=== PATIENT | male | born 1980 | race Caucasian/White ===

== ENCOUNTER 2017-07-01 17:10 | Emergency (ER) | payer OTHER ==
[2017-07-01] MEDS ORDERED: SODIUM CHLORIDE 0.9% 1,000 ML IV STA ×3 (17:14)
[2017-07-01 17:30] LABS: Basophils % (A) 1 %; CHCM 33.6; Eosinophils # (A) 0.2 k/uL (0-0.7); Eosinophils % (A) 3 %; HCT 48.7 % (39.0-53.0); HDW 2.41; HGB 15.6 gm/dL (13.0-17.5); Luc # (Auto) 0.11; Luc % (Auto) 2; Lymphocytes # (A) 1.8 k/uL (1.0-4.8); Lymphocytes % (A) 31 %; MCH 29.7 pg (25.0-35.0); MCHC 32.1 g/dL (31.0-37.0); MCV 92.7 fL (80.0-100.0); Mean Platelet Volume 6.9; Monocytes # (A) 0.4 k/uL (0-1.0); Monocytes % (A) 6 %; Neutrophils # (A) 3.4 k/uL (1.3-7.7); Neutrophils % (A) 57 %; RBC 5.25 m/uL (4.30-5.90); RDW 14.4 % (11.5-15.5); WBC 5.9 k/uL (3.8-10.6); WBC (Perox) 5.91
--- NOTE | 2017-07-01 17:37 | CT ---
EXAMINATION TYPE: CT brain wo con DATE OF EXAM: 07/01/2017 COMPARISON: 09/16/2016 HISTORY: Seizure like activity today. History of seizures CT DLP: 1306.5 mGycm. Automated Exposure Control for Dose Reduction was Utilized. TECHNIQUE: CT scan of the head is performed without contrast. FINDINGS: There is a wedge-shaped 4 cm area of hypodensity in the left posterior temporal lobe. The re is no mass effect nor midline shift. There is no sign of intracranial hemorrhage. Ventricles of no rmal size. There is a 2 cm area of hypodensity in the left posterior frontal lobe cortex. There is bi lateral old craniotomy defect noted. CONCLUSION: Encephalomalacia in the left posterior frontal lobe and left posterior temporal lobe without change c ompared to old exam. No acute intracranial abnormality. Right side sphenoid sinusitis noted with a 1. 8 cm mucous retention cyst that is unchanged compared to old exam. There is also stable chronic ethmo id sinusitis.
[2017-07-01 17:42] LABS: Partial Thromboplastin Time 24.8 sec (22.0-30.0)
[2017-07-01 17:43] LABS: ALT 33 U/L (21-72); AST 16 U/L (17-59); Acetaminophen <10.0 ug/mL; Alcohol <10 mg/dL; Alkaline Phosphatase 61 U/L (38-126); Anion Gap 10 mmol/L; Blood Urea Nitrogen 11 mg/dL (9-20); Calcium 8.9 mg/dL (8.4-10.2); Carbamazepine (Tegretol) <3.0 ug/mL; Carbon Dioxide 25 mmol/L (22-30); Chloride 108 mmol/L (98-107); Glucose 110 mg/dL (74-99); Lithium <0.2 mmol/L; Magnesium 1.8 mg/dL (1.6-2.3); Non-African American GFR(MDRD) >60 (>60 ml/min/1.73 sqM); Phosphorous 3.4 mg/dL (2.5-4.5); Potassium 3.5 mmol/L (3.5-5.1); Salicylate <1.0 mg/dL; Sodium 143 mmol/L (137-145); Total Bilirubin 0.4 mg/dL (0.2-1.3)
[2017-07-01 17:44] LABS: INR 1.1 (<1.2)
--- NOTE | 2017-07-01 17:47 | ED ---
General Adult HPI - General Chief complaint: Altered Mental Status Stated complaint: Seizure Time Seen by Provider: 07/01/17 17:14 Source: patient, RN notes reviewed, old records reviewed Mode of arrival: EMS - History of Present Illness Initial comments: This is a 37-year-old male to the ER for evaluation. Patient is today for evaluation regarding altered mental status. Patient has history of seizures on Keppra does take his medications as prescribed, seizure are from close head injury as a child. Patient did have seizure earlier today and has been altered ever since. Patient still remains difficult historian secondary to likely postictal state - Related Data Home Medications Medication Instructions Recorded Confirmed levETIRAcetam [Keppra] 1,000 mg PO Q12HR 06/16/16 07/01/17 Albuterol Inhaler [Ventolin Hfa 1 - 2 puff INHALATION RT-QID PRN 07/01/17 Inhaler] Cetirizine HCl [Zyrtec] 10 mg PO DAILY 07/01/17 07/01/17 Fluticasone Nasal [place] [Flonase 1 spray EA NOSTRIL DAILY 07/01/17 07/01/17 Nasal [place]] Allergies Allergy/AdvReac Type Severity Reaction Status Date / Time phenobarbital Allergy Unknown Verified 07/01/17 17:29 Childhood phenytoin sodium Allergy Unknown Verified 07/01/17 17:29 [From Dilantin] Childhood phenytoin sodium extended Allergy Unknown Verified 07/01/17 17:29 [From Dilantin] Childhood Review of Systems ROS Statement: Those systems with pertinent positive or pertinent negative responses have been documented in the HPI. ROS Other: All systems not noted in ROS Statement are negative. Past Medical History Past Medical History: Seizure Disorder Additional Past Medical History / Comment(s): CHI, History of Any Multi-Drug Resistant Organisms: None Reported Additional Past Surgical History / Comment(s): brain surgery, shunts Past Psychological History: No Psychological Hx Reported Smoking Status: Current every day smoker Past Alcohol Use History: Rare Past Drug Use History: None Reported General Exam General appearance: alert, in no apparent distress Head exam: Present: atraumatic, normocephalic, normal inspection Eye exam: Present: normal appearance, PERRL, EOMI. Absent: scleral icterus, conjunctival injection, periorbital swelling ENT exam: Present: normal exam, mucous membranes moist Neck exam: Present: normal inspection. Absent: tenderness, meningismus, lymphadenopathy Respiratory exam: Present: normal lung sounds bilaterally. Absent: respiratory distress, wheezes, rales, rhonchi, stridor Cardiovascular Exam: Present: regular rate, normal rhythm, normal heart sounds. Absent: systolic murmur, diastolic murmur, rubs, gallop, clicks GI/Abdominal exam: Present: soft, normal bowel sounds. Absent: distended, tenderness, guarding, rebound, rigid Extremities exam: Present: normal inspection, full ROM, normal capillary refill. Absent: tenderness, pedal edema, joint swelling, calf tenderness Back exam: Present: normal inspection Neurological exam: Present: alert, oriented X3, CN II-XII intact Psychiatric exam: Present: normal affect, normal mood Skin exam: Present: warm, dry, intact, normal color. Absent: rash Course Vital Signs 07/01/17 07/01/17 07/01/17 17:12 17:58 18:44 Temperature 99.0 F Pulse Rate 18 L 77 75 Respiratory 18 18 14 Rate Blood Pressure 136/76 122/67 110/61 O2 Sat by Pulse 99 96 Oximetry - Reevaluation(s) Reevaluation #1: 07/01/17 18:11 is at bedside he states patient is acting appropriate for his postseizure mental state Reevaluation #2: 07/01/17 18:46 Patient is without further seizure activity EKG Findings - EKG Comments: EKG Findings:: EKG shows normal sinus rhythm rate of 83, LA 44, QRS 70, QTc 472 Medical Decision Making - Medical Decision Making 37 male to ER with recurrent seizure. Postictal state. CT negative, however is normal at this time. Patient without second seizure here in the emergency room. Patient can be discharged home - Lab Data Result diagrams: 07/01/17 17:16 07/01/17 17:16 Lab Results 07/01/17 07/01/17 07/01/17 Range/Units 17:16 17:16 17:16 WBC (3.8-10.6) k/uL RBC (4.30-5.90) m/uL Hgb (13.0-17.5) gm/dL Hct (39.0-53.0) % MCV (80.0-100.0) fL MCH (25.0-35.0) pg MCHC (31.0-37.0) g/dL RDW (11.5-15.5) % Plt Count (150-450) k/uL Neutrophils % % Lymphocytes % % Monocytes % % Eosinophils % % Basophils % % Neutrophils # (1.3-7.7) k/uL Lymphocytes # (1.0-4.8) k/uL Monocytes # (0-1.0) k/uL Eosinophils # (0-0.7) k/uL Basophils # (0-0.2) k/uL PT (9.0-12.0) sec INR (<1.2) APTT (22.0-30.0) sec Sodium 143 (137-145) mmol/L Potassium 3.5 (3.5-5.1) mmol/L Chloride 108 H (98-107) mmol/L Carbon Dioxide 25 (22-30) mmol/L Anion Gap 10 mmol/L BUN 11 (9-20) mg/dL Creatinine 0.90 (0.66-1.25) mg/dL Est GFR (MDRD) Af Amer >60 (>60 ml/min/1.73 sqM) Est GFR (MDRD) Non-Af >60 (>60 ml/min/1.73 sqM) Glucose 110 H (74-99) mg/dL Plasma Lactic Acid Gerald 1.2 (0.7-2.0) mmol/L Calcium 8.9 (8.4-10.2) mg/dL Phosphorus 3.4 (2.5-4.5) mg/dL Magnesium 1.8 (1.6-2.3) mg/dL Total Bilirubin 0.4 (0.2-1.3) mg/dL AST 16 L (17-59) U/L ALT 33 (21-72) U/L Alkaline Phosphatase 61 (38-126) U/L Total Creatine Kinase 33 L (55-170) U/L CK-MB (CK-2) 0.3 (0.0-2.4) ng/mL CK-MB (CK-2) Rel Index 0.9 Troponin I <0.012 (0.000-0.034) ng/mL Total Protein 7.0 (6.3-8.2) g/dL Albumin 3.9 (3.5-5.0) g/dL TSH 6.070 H (0.465-4.680) mIU/L Salicylates <1.0 mg/dL Acetaminophen <10.0 ug/mL Phenytoin <3.0 ug/mL Valproic Acid <10.0 ug/mL Carbamazepine <3.0 ug/mL [place] <0.2 mmol/L Serum Alcohol <10 mg/dL 07/01/17 07/01/17 Range/Units 17:16 17:16 WBC 5.9 (3.8-10.6) k/uL RBC 5.25 (4.30-5.90) m/uL Hgb 15.6 (13.0-17.5) gm/dL Hct 48.7 (39.0-53.0) % MCV 92.7 (80.0-100.0) fL MCH 29.7 (25.0-35.0) pg MCHC 32.1 (31.0-37.0) g/dL RDW 14.4 (11.5-15.5) % Plt Count 238 (150-450) k/uL Neutrophils % 57 % Lymphocytes % 31 % Monocytes % 6 % Eosinophils % 3 % Basophils % 1 % Neutrophils # 3.4 (1.3-7.7) k/uL Lymphocytes # 1.8 (1.0-4.8) k/uL Monocytes # 0.4 (0-1.0) k/uL Eosinophils # 0.2 (0-0.7) k/uL Basophils # 0.0 (0-0.2) k/uL PT 11.0 (9.0-12.0) sec INR 1.1 (<1.2) APTT 24.8 (22.0-30.0) sec Sodium (137-145) mmol/L Potassium (3.5-5.1) mmol/L Chloride (98-107) mmol/L Carbon Dioxide (22-30) mmol/L Anion Gap mmol/L BUN (9-20) mg/dL Creatinine (0.66-1.25) mg/dL Est GFR (MDRD) Af Amer (>60 ml/min/1.73 sqM) Est GFR (MDRD) Non-Af (>60 ml/min/1.73 sqM) Glucose (74-99) mg/dL Plasma Lactic Acid Gerald (0.7-2.0) mmol/L Calcium (8.4-10.2) mg/dL Phosphorus (2.5-4.5) mg/dL Magnesium (1.6-2.3) mg/dL Total Bilirubin (0.2-1.3) mg/dL AST (17-59) U/L ALT (21-72) U/L Alkaline Phosphatase (38-126) U/L Total Creatine Kinase (55-170) U/L CK-MB (CK-2) (0.0-2.4) ng/mL CK-MB (CK-2) Rel Index Troponin I (0.000-0.034) ng/mL Total Protein (6.3-8.2) g/dL Albumin (3.5-5.0) g/dL TSH (0.465-4.680) mIU/L Salicylates mg/dL Acetaminophen ug/mL Phenytoin ug/mL Valproic Acid ug/mL Carbamazepine ug/mL [place] mmol/L Serum Alcohol mg/dL - Radiology Data Radiology results: report reviewed (CT brain is negative for acute disease), image reviewed Disposition Clinical Impression: Altered mental status, Postictal state Disposition: HOME SELF-CARE Condition: Good Instructions: Altered Mental Status (ED) Referrals: Marry Lagos MD [Primary Care Provider] - 1-2 days
[2017-07-01 18:00] LABS: Creatine Kinase 33 U/L (55-170)
[2017-07-01 18:11] LABS: Creatine Kinase MB 0.3 ng/mL (0.0-2.4); Troponin I <0.012 ng/mL (0.000-0.034)
[2017-07-01 18:58] LABS: Appearance,Urine Clear (Clear); Bilirubin,Urine Negative (Negative); Glucose,Urine (UA) Negative (Negative); Ketones,Urine Negative (Negative); Leukocyte Esterase,Urine Negative (Negative); Nitrite,Urine Negative (Negative); Protein,Urine Negative (Negative); Specific Gravity,Urine 1.016 (1.001-1.035); UA Billing (MACRO vs. MICRO) CHEM; Urobilinogen,Urine <2.0 mg/dL (<2.0)
[2017-07-01 19:33] VITALS: BP 133/88; PULSE 70; RESP 18; TEMP 98.8
== END 2017-07-01 19:30 | disposition home or self-care (01) ==
LOC: EC 17:10
DX: R41.82 Altered mental status, unspecified (principal); R56.9 Unspecified convulsions; F17.200 Nicotine dependence, unspecified, uncomplicated; Z79.51 Long term (current) use of inhaled steroids; Z79.899 Other long term (current) drug therapy; Z88.8 Allergy status to other drugs, medicaments and biological substances
CPT/HCPCS: 36415; 70450; 80053; 80156; 80164; 80178; 80185; 80306; 80320; 81003; 82550; 82553; 83520; 83605; 83735; 84100; 84443; 84484; 85025; 85610; 85730; 87086; 93005; 96360; 99285

== ENCOUNTER 2017-12-28 02:23 | Observation (INO) | payer OTHER ==
[2017-12-28 02:33] VITALS: RESP 18
[2017-12-28] MEDS ORDERED: PNEUMONIA PROTOCOL UTILIZED 1 EACH MISC PO PRN (02:40)
[2017-12-28] MEDS ORDERED: ACETAMINOPHEN TAB 325 MG TAB PO PRN (02:47)
[2017-12-28] MEDS ORDERED: IBUPROFEN 600 MG TAB PO PRN (02:47)
--- NOTE | 2017-12-28 02:47 | ED ---
Seizure HPI - General Chief Complaint: Upper Respiratory Infection Stated Complaint: Pneumonia Time Seen by Provider: 12/28/17 02:26 Source: patient Mode of arrival: ambulatory Limitations: no limitations - History of Present Illness Initial Comments: This is a 37-year-old male with a history of epilepsy who presented to outside hospital for breakthrough seizures. He reportedly had 2 seizures prior to getting to the emergency department. One was 3 minutes long and the other was 1 minute long. He did have a seizure in the presence of EMS personnel who gave him 10 mg of IM Versed in route to the outside hospital. On arrival to the ER the patient was hypoxic in the high 80s and very somnolent. He is placed on nonrebreather which improved his oxygen saturations. His mental status did improve throughout the ED stay. He was given 1 g of Keppra in the emergency department at the outside hospital. He had a full workup performed that revealed a left lower lobe pneumonia and possible right-sided infiltrate as well. He was started on Rocephin and got 2 g of that there. The patient also received 3 L of IV fluids while there. He was monitored in his mental status gradually improved area and due to the pneumonia and breakthrough seizures she was transferred to the emergency department here for further management. Of note the patient was febrile at 100.8 at the outside facility. Blood cultures were drawn lactic acid was normal. White blood cell count was 10. The rest of his blood work was unremarkable. The patient currently is very confused and has difficulty answering questions. He is alert and oriented to person only. He is awake however. Has no physical complaints at this time. - Related Data Home Medications Medication Instructions Recorded Confirmed levETIRAcetam [Keppra] 1,000 mg PO Q12HR 06/16/16 07/01/17 Albuterol Inhaler [Ventolin Hfa 1 - 2 puff INHALATION RT-QID PRN 07/01/17 Inhaler] Cetirizine HCl [Zyrtec] 10 mg PO DAILY 07/01/17 07/01/17 Fluticasone Nasal [place] [Flonase 1 spray EA NOSTRIL DAILY 07/01/17 07/01/17 Nasal [place]] Allergies Allergy/AdvReac Type Severity Reaction Status Date / Time phenobarbital Allergy Unknown Verified 07/01/17 17:29 Childhood phenytoin sodium Allergy Unknown Verified 07/01/17 17:29 [From Dilantin] Childhood phenytoin sodium extended Allergy Unknown Verified 07/01/17 17:29 [From Dilantin] Childhood Review of Systems ROS Statement: Those systems with pertinent positive or pertinent negative responses have been documented in the HPI. ROS Other: All systems not noted in ROS Statement are negative. Past Medical History Past Medical History: Seizure Disorder Additional Past Medical History / Comment(s): CHI, History of Any Multi-Drug Resistant Organisms: None Reported Additional Past Surgical History / Comment(s): brain surgery, shunts Past Psychological History: No Psychological Hx Reported Smoking Status: Former smoker Past Alcohol Use History: Rare Past Drug Use History: Marijuana General Exam - General Exam Comments Initial Comments: Constitutional: Awake alert Appears comfortable Head: Normocephalic atraumatic Eyes: no conjunctival injection No scleral icterus EOMI Neck: No JVD Supple Heart: Regular rate rhythm normal S1-S2 no murmurs Lungs: Clear to auscultation bilaterally No wheezing No rales Abdomen: Soft nondistended nontender Extremities: Non edematous DP pulses intact Radial pulses intact Neuro: "Alert and oriented 0, very confused speech. When asked how tall he is he states that he is "3". When I ask him the year he states "28" he has no focal neurologic deficits however Psych: Appropriate mood and affect Limitations: no limitations Course Vital Signs 12/28/17 02:25 Temperature 98.8 F Pulse Rate 99 Respiratory 18 Rate Blood Pressure 130/84 O2 Sat by Pulse 94 L Oximetry Medical Decision Making - Medical Decision Making This is a 37-year-old male who presents to the emergency department from outside hospital for breakthrough seizures, sepsis, and required pneumonia. The patient will be started on Levaquin here and admitted to the hospital. ER he received 1 g of Keppra. I will continue his home dose will be started tomorrow. He needs to be watched closely. Tylenol and Motrin as needed for fever. Dr. Quick accepts the admission. Disposition Clinical Impression: Breakthrough seizure, CAP (community acquired pneumonia), Sepsis Disposition: ADMITTED IP TO THIS HOSP Condition: Stable
[2017-12-28] MEDS: SODIUM CHLORIDE 0.9% 1,000 ML IV SCH ×2 (02:51→12:52)
[2017-12-28 04:41] VITALS: PULSE 79; BMI 30.9
[2017-12-28] MEDS ORDERED: LEVOFLOXACIN 750MG-D5W PMX 750 MG in DEXTROSE/WATER 1 150ML.BAG IVPB SCH (05:00)
[2017-12-28] MEDS ORDERED: levETIRAcetam 500 MG TAB PO SCH (09:00)
[2017-12-28] MEDS ORDERED: LORazepam 2 MG/ML INJ IV PRN (11:52)
[2017-12-28 16:19] VITALS: BP 101/57; TEMP 98.4
--- NOTE | 2017-12-29 13:21 | XR ---
EXAMINATION TYPE: XR chest 2V DATE OF EXAM: 12/28/2017 COMPARISON: NONE HISTORY: Productive cough with concern for pneumonia TECHNIQUE: Frontal and lateral views of the chest are obtained. FINDINGS: Left midlung subsegmental linear platelike atelectasis is noted. There is no focal air spa ce opacity, pleural effusion, or pneumothorax seen. The cardiac silhouette size is upper limits of n ormal. The osseous structures are intact. IMPRESSION: No focal consolidation to suggest pneumonia. Left lower lung subsegmental atelectasis.
--- NOTE | 2017-12-29 15:00 | P.HPIM ---
History of Present Illness H&P Date: 12/28/17 37-year-old male with a history of epilepsy who presented to outside hospital for breakthrough seizures. He reportedly had 2 seizures prior to getting to the emergency department. One was 3 minutes long and the other was 1 minute long. He did have a seizure in the presence of EMS personnel who gave him 10 mg of IM Versed in route to the outside hospital. On arrival to the ER the patient was hypoxic in the high 80s and very somnolent. He is placed on nonrebreather which improved his oxygen saturations. His mental status did improve throughout the ED stay. He was given 1 g of Keppra in the emergency department at the outside hospital. He had a full workup performed that revealed a left lower lobe pneumonia and possible right-sided infiltrate as well. He was started on Rocephin and got 2 g of that there. The patient also received 3 L of IV fluids while there. He was monitored in his mental status gradually improved area and due to the pneumonia and breakthrough seizures she was transferred to the emergency department here for further management. Of note the patient was febrile at 100.8 at the outside facility. Blood cultures were drawn lactic acid was normal. White blood cell count was 10. The rest of his blood work was unremarkable. The patient currently is very confused and has difficulty answering questions. He is alert and oriented to person only. He is awake however. Has no physical complaints at this time. Patient was admitted for breakthrough seizures. Chest x-ray was repeated, repeat chest x- ray is not convincing for pneumonia antibiotics were discontinued. Neurology was consulted. Review of Systems REVIEW OF SYSTEMS: CONSTITUTIONAL: No fever, no malaise, no fatigue. HEENT: No recent visual problems or hearing problems. Denied any sore throat. CARDIOVASCULAR: No chest pain, orthopnea, PND, no palpitations, no syncope. PULMONARY: No shortness of breath, no cough, no hemoptysis. GASTROINTESTINAL: No diarrhea, no nausea, no vomiting, no abdominal pain. Normoactive bowel sounds. NEUROLOGICAL: No headaches, no weakness, no numbness. HEMATOLOGICAL: Denies any bleeding or petechiae. GENITOURINARY: Denies any burning micturition, frequency, or urgency. MUSCULOSKELETAL/RHEUMATOLOGICAL: Denies any joint pain, swelling, or any muscle pain. ENDOCRINE: Denies any polyuria or polydipsia. The rest of the 14-point review of systems is negative. 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 14 years old, shunts Past Anesthesia/Blood Transfusion Reactions: No Reported Reaction Past Psychological History: No Psychological Hx Reported Smoking Status: Former smoker Past Alcohol Use History: Rare Past Drug Use History: Marijuana Medications and Allergies Home Medications Medication Instructions Recorded Confirmed Type levETIRAcetam [Keppra] 1,000 mg PO Q12HR 06/16/16 12/28/17 History Allergies Allergy/AdvReac Type Severity Reaction Status Date / Time phenobarbital Allergy Unknown Verified 12/28/17 07:54 Childhood phenytoin sodium Allergy Unknown Verified 12/28/17 07:54 [From Dilantin] Childhood phenytoin sodium extended Allergy Unknown Verified 12/28/17 07:54 [From Dilantin] Childhood Physical Exam Vitals: Vital Signs Temp Pulse Resp BP Pulse Ox 12/28/17 16:00 79 18 12/28/17 15:00 98.4 F 87 18 101/57 96 Intake and Output 12/28/17 12/29/17 12/29/17 22:59 06:59 14:59 Other: Weight 100.5 kg PHYSICAL EXAMINATION: GENERAL: The patient is alert and oriented x3, not in any acute distress. Well developed, well nourished. HEENT: Pupils are round and equally reacting to light. EOMI. No scleral icterus. No conjunctival pallor. Normocephalic, atraumatic. No pharyngeal erythema. No thyromegaly. CARDIOVASCULAR: S1 and S2 present. No murmurs, rubs, or gallops. PULMONARY: Chest is clear to auscultation, no wheezing or crackles. ABDOMEN: Soft, nontender, nondistended, normoactive bowel sounds. No palpable organomegaly. MUSCULOSKELETAL: No joint swelling or deformity. EXTREMITIES: No cyanosis, clubbing, or pedal edema. NEUROLOGICAL: Gross neurological examination did not reveal any focal deficits. SKIN: No rashes. Thrombosis Risk Factor Assmnt - Choose All That Apply Any of the Below Risk Factors Present?: No Other Risk Factors: No Other congenital or acquired thrombophilia - If yes, enter type in comment: No Thrombosis Risk Factor Assessment Level: Very Low Risk Assessment and Plan Plan: -Breakthrough seizures: Neurology was consulted patient is being continued on Keppra Keppra levels are often although patient already received IV. Patient was started on as needed Ativan for seizures. -Rule out pneumonia repeat chest x-ray is not consistent with pneumonia patient doesn't have any symptoms consistent with pneumonia. Although patient does have atelectasis. -Seizure disorder
--- NOTE | 2017-12-29 15:00 | P.DS ---
Providers Date of admission: 12/28/17 02:40 Attending physician: Marysol Quick Consults: 12/28/17 11:51 Consult Physician Routine Consulting Provider: Kindra Houser Consult Reason/Comments: Breaktrough seizure Do you want consulting provider notified?: Yes Primary care physician: [facility] Course: Patient later left AGAINST MEDICAL ADVICE on 12/28/2017 Patient Condition at Discharge: Stable Plan - Discharge Summary Discharge Rx Participant: No New Discharge Prescriptions: No Action levETIRAcetam [Keppra] 1,000 mg PO Q12HR Discharge Medication List levETIRAcetam [Keppra] 1,000 mg PO Q12HR 06/16/16 [History] Discharge Disposition: Left Against Medical Advice
== END 2017-12-28 18:00 | disposition left against medical advice (07) ==
LOC: EC 02:23 → 5MS5E 02:40 → INTOOBSV 02:40 → UNDODISIN 18:00
PROVIDERS: ADMIT Hospitalist; ATTEND Hospitalist
DX: G40.909 Epilepsy, unspecified, not intractable, without status epilepticus (principal); J98.11 Atelectasis; Z53.21 Procedure and treatment not carried out due to patient leaving prior to being seen by health care provider; R09.02 Hypoxemia; Z79.899 Other long term (current) drug therapy; Z87.891 Personal history of nicotine dependence; Z98.890 Other specified postprocedural states; Z88.8 Allergy status to other drugs, medicaments and biological substances
CPT/HCPCS: 96365; 99284; 80177; 71046; G0378; J1956; 96366

== ENCOUNTER 2017-12-31 22:00 | Emergency (ER) | payer OTHER ==
[2017-12-31 22:08] VITALS: PULSE 62
[2017-12-31] MEDS ORDERED: SODIUM CHLORIDE 0.9% 500 ML IV STA (22:54)
[2017-12-31 23:27] LABS: Basophils % (A) 0 %; Eosinophils # (A) 0.2 k/uL (0-0.7); Eosinophils % (A) 4 %; HCT 41.8 % (39.0-53.0); HGB 15.3 gm/dL (13.0-17.5); Lymphocytes # (A) 1.2 k/uL (1.0-4.8); Lymphocytes % (A) 18 %; MCH 30.2 pg (25.0-35.0); MCHC 36.5 g/dL (31.0-37.0); MCV 82.8 fL (80.0-100.0); Mean Platelet Volume 6.5; Monocytes # (A) 0.4 k/uL (0-1.0); Monocytes % (A) 5 %; Neutrophils # (A) 4.7 k/uL (1.3-7.7); Neutrophils % (A) 71 %; Platelet Count 264 k/uL (150-450); RBC 5.05 m/uL (4.30-5.90); RDW 12.6 % (11.5-15.5); WBC 6.7 k/uL (3.8-10.6)
--- NOTE | 2017-12-31 23:33 | ED ---
Dizziness HPI - General Chief Complaint: Dizziness Stated Complaint: fever Time Seen by Provider: 12/31/17 22:30 Source: patient Mode of arrival: ambulatory Limitations: no limitations - History of Present Illness Initial Comments: This patient is a 37-year-old man presents to be evaluated after he had developed some dizziness tonight. This occurred approximately an hour ago. The patient was at a friend's home. He states that he was seated at the time. He became concerned because he had a similar episode a few days ago, and then after the dizziness developed he had a generalized tonic-clonic seizure. The patient does have history of seizure disorder. He states that he has been compliant with his medications. He also had a little bit of nausea associated with the episode tonight and he felt clammy. He decided to be evaluated here because with the last episode he had a seizure, was seen at an outside hospital , told that he had pneumonia. He was transferred here but then signed out before he was discharged. The patient denies any symptoms of pneumonia, no fever or chills, coughing, dyspnea, chest pain. MD Complaint: dizziness Onset/Timin -: hour(s) Timing: sudden onset Description: off-balance History of Same: Yes History of Trauma: No Severity: mild Improves With: nothing Worsens With: movement Associated Symptoms: other (nausea) - Related Data Home Medications Medication Instructions Recorded Confirmed levETIRAcetam [Keppra] 1,000 mg PO Q12HR 06/16/16 12/31/17 Allergies Allergy/AdvReac Type Severity Reaction Status Date / Time phenobarbital Allergy Unknown Verified 12/31/17 22:32 Childhood phenytoin sodium Allergy Unknown Verified 12/31/17 22:32 [From Dilantin] Childhood phenytoin sodium extended Allergy Unknown Verified 12/31/17 22:32 [From Dilantin] Childhood Review of Systems ROS Statement: Those systems with pertinent positive or pertinent negative responses have been documented in the HPI. ROS Other: All systems not noted in ROS Statement are negative. Constitutional: Denies: fever, chills, weakness Eyes: Denies: vision change Respiratory: Denies: cough, dyspnea, wheezes Cardiovascular: Denies: chest pain, palpitations, orthopnea, syncope Gastrointestinal: Reports: nausea. 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 Absent: scleral icterus, conjunctival injection, nystagmus ENT exam: Present: normal oropharynx Neck exam: Present: normal inspection Respiratory exam: Present: normal lung sounds bilaterally. Absent: respiratory distress, wheezes, rales, rhonchi, stridor Cardiovascular Exam: Present: regular rate, normal rhythm, normal heart sounds. Absent: systolic murmur, diastolic murmur, rubs, gallop GI/Abdominal exam: Present: soft. Absent: distended, tenderness, guarding, rebound, mass Extremities exam: Present: normal inspection, normal capillary refill. Absent: pedal edema, calf tenderness Back exam: Present: normal inspection. Absent: CVA tenderness (R), CVA tenderness (L) Neurological exam: Present: alert, oriented X3, CN II-XII intact, normal gait. Absent: motor sensory deficit Skin exam: Present: warm, dry, intact, normal color. Absent: rash Course Vital Signs 12/31/17 01/01/18 01/01/18 22:05 00:14 00:40 Temperature 97.0 F L 98.4 F Pulse Rate 62 62 Respiratory 18 15 Rate Blood Pressure 139/88 125/74 O2 Sat by Pulse 100 98 Oximetry EKG Findings - EKG Results: EKG: interpreted by SATHISH LOPEZ, sinus rhythm (Rate 63 bpm), normal axis, normal QRS, normal ST/T, no acute changes - ID, Pacemaker, Normal: Normal tracing: normal tracing Medical Decision Making - Lab Data Result diagrams: 12/31/17 23:14 12/31/17 23:14 Lab Results 12/31/17 12/31/17 12/31/17 Range/Units 23:14 23:14 23:14 WBC 6.7 (3.8-10.6) k/uL RBC 5.05 (4.30-5.90) m/uL Hgb 15.3 (13.0-17.5) gm/dL Hct 41.8 (39.0-53.0) % MCV 82.8 (80.0-100.0) fL MCH 30.2 (25.0-35.0) pg MCHC 36.5 (31.0-37.0) g/dL RDW 12.6 (11.5-15.5) % Plt Count 264 (150-450) k/uL Neutrophils % 71 % Lymphocytes % 18 % Monocytes % 5 % Eosinophils % 4 % Basophils % 0 % Neutrophils # 4.7 (1.3-7.7) k/uL Lymphocytes # 1.2 (1.0-4.8) k/uL Monocytes # 0.4 (0-1.0) k/uL Eosinophils # 0.2 (0-0.7) k/uL Basophils # 0.0 (0-0.2) k/uL Sodium 144 (137-145) mmol/L Potassium 4.1 (3.5-5.1) mmol/L Chloride 106 (98-107) mmol/L Carbon Dioxide 26 (22-30) mmol/L Anion Gap 12 mmol/L BUN 13 (9-20) mg/dL Creatinine 0.80 (0.66-1.25) mg/dL Est GFR (CKD-EPI)AfAm >90 (>60 ml/min/1.73 sqM) Est GFR (CKD-EPI)NonAf >90 (>60 ml/min/1.73 sqM) Glucose 88 (74-99) mg/dL Calcium 9.0 (8.4-10.2) mg/dL Total Bilirubin 0.4 (0.2-1.3) mg/dL AST 17 (17-59) U/L ALT 15 L (21-72) U/L Alkaline Phosphatase 48 (38-126) U/L Total Protein 6.9 (6.3-8.2) g/dL Albumin 3.8 (3.5-5.0) g/dL Urine Color Yellow Urine Appearance Clear (Clear) Urine pH 6.5 (5.0-8.0) Ur Specific [place] 1.022 (1.001-1.035) Urine Protein 1+ H (Negative) Urine Glucose (UA) Negative (Negative) Urine Ketones Negative (Negative) Urine Blood Negative (Negative) Urine Nitrite Negative (Negative) Urine Bilirubin Negative (Negative) Urine Urobilinogen <2.0 (<2.0) mg/dL Ur Leukocyte Esterase Negative (Negative) Urine RBC 1 (0-5) /hpf Urine WBC 2 (0-5) /hpf Ur Squamous Epith Cells <1 (0-4) /hpf Urine Bacteria Rare H (None) /hpf Urine Mucus Many H (None) /hpf Disposition Clinical Impression: Dizziness Disposition: HOME SELF-CARE Condition: Good Instructions: Dizziness (ED) Referrals: None,Stated [Primary Care Provider] - 1-2 days
[2017-12-31 23:37] LABS: Appearance,Urine Clear (Clear); Bacteria,Urine Rare /hpf; Bilirubin,Urine Negative (Negative); Blood,Urine Negative (Negative); Color,Urine Yellow; Glucose,Urine (UA) Negative (Negative); Ketones,Urine Negative (Negative); Leukocyte Esterase,Urine Negative (Negative); Mucus,Urine Many /hpf; Nitrite,Urine Negative (Negative); PH, Urine 6.5 (5.0-8.0); Protein,Urine 1+ (Negative); RBC,Urine 1 /hpf (0-5); Specific Gravity,Urine 1.022 (1.001-1.035); Squamous Epithelial Cell,Urine <1 /hpf (0-4); Urobilinogen,Urine <2.0 mg/dL (<2.0); WBC,Urine 2 /hpf (0-5)
[2017-12-31 23:42] LABS: ALT 15 U/L (21-72); AST 17 U/L (17-59); Albumin 3.8 g/dL (3.5-5.0); Alkaline Phosphatase 48 U/L (38-126); Anion Gap 12 mmol/L; Blood Urea Nitrogen 13 mg/dL (9-20); Carbon Dioxide 26 mmol/L (22-30); Chloride 106 mmol/L (98-107); Glucose 88 mg/dL (74-99); Potassium 4.1 mmol/L (3.5-5.1); Sodium 144 mmol/L (137-145); Total Bilirubin 0.4 mg/dL (0.2-1.3); Total Protein 6.9 g/dL (6.3-8.2)
--- NOTE | 2018-01-01 | XR ---
EXAMINATION TYPE: XR chest 2V DATE OF EXAM: 12/31/2017 COMPARISON: 12/28/2017 HISTORY: Dizziness TECHNIQUE: Frontal and lateral views of the chest are obtained. FINDINGS: Heart and mediastinum are normal. Lungs are clear. Diaphragm is normal. Bony thorax is int act. There are chest leads. IMPRESSION: Normal chest. There is clearing of the focal atelectasis in the left midlung compared to old exam.
[2018-01-01 00:15] VITALS: BP 125/74; RESP 15
[2018-01-01 00:41] VITALS: TEMP 98.4
== END 2018-01-01 00:41 | disposition home or self-care (01) ==
LOC: EC 22:00
DX: R42 Dizziness and giddiness (principal); R50.9 Fever, unspecified; R11.0 Nausea; G40.909 Epilepsy, unspecified, not intractable, without status epilepticus; Z87.891 Personal history of nicotine dependence; Z88.8 Allergy status to other drugs, medicaments and biological substances; Z79.899 Other long term (current) drug therapy; Z98.890 Other specified postprocedural states
CPT/HCPCS: 36415; 71046; 80053; 81001; 85025; 93005; 99284

== ENCOUNTER 2019-01-25 10:36 | Emergency (ER) | payer OTHER ==
[2019-01-25] MEDS ORDERED: diphenhydrAMINE 50 MG/ML 1 ML VIAL IVP STA (11:37)
[2019-01-25] MEDS ORDERED: SODIUM CHLORIDE 0.9% 1,000 ML IV STA (11:37)
[2019-01-25] MEDS ORDERED: METOCLOPRAMIDE 5 MG/ML 2 ML VIAL IVP STA (11:37)
--- NOTE | 2019-01-25 12:03 | ED ---
Headache HPI - General Chief Complaint: Headache Stated Complaint: Altered Mental Status Time Seen by Provider: 01/25/19 11:05 Source: RN notes reviewed, old records reviewed Mode of arrival: EMS Limitations: no limitations - History of Present Illness Initial Comments: Patient is a 38-year-old male with history of seizure disorder and brain sounds presents or urgency department today with waking up with a headache. Patient reports the pain is behind his left eye. Patient states that he had concerns for some brief right sided visual loss that resumed his Tylenol this morning. Patient arrived here with his girlfriend and stepmother. Patient states he's also been having some mid back pain. He complains of slight cough. He arrives to emergency department today with complaints of right rib pain. - Related Data Home Medications Medication Instructions Recorded Confirmed levETIRAcetam [Keppra] 1,000 mg PO Q12HR 06/16/16 01/25/19 Allergies Allergy/AdvReac Type Severity Reaction Status Date / Time phenobarbital Allergy Unknown Verified 01/25/19 10:55 Childhood phenytoin sodium Allergy Unknown Verified 01/25/19 10:55 [From Dilantin] Childhood phenytoin sodium extended Allergy Unknown Verified 01/25/19 10:55 [From Dilantin] Childhood Review of Systems ROS Statement: Those systems with pertinent positive or pertinent negative responses have been documented in the HPI. ROS Other: All systems not noted in ROS Statement are negative. 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 Alert and oriented. Limitations: no limitations General appearance: alert, in no apparent distress Head exam: Present: atraumatic, normocephalic, normal inspection Eye exam: Present: normal appearance, PERRL, EOMI. Absent: scleral icterus, conjunctival injection, periorbital swelling ENT exam: Present: normal exam, mucous membranes moist Neck exam: Present: normal inspection. Absent: tenderness, meningismus, lymphadenopathy Respiratory exam: Present: normal lung sounds bilaterally Cardiovascular Exam: Present: regular rate, normal rhythm, normal heart sounds. Absent: systolic murmur, diastolic murmur, rubs, gallop, clicks GI/Abdominal exam: Present: soft, normal bowel sounds. Absent: distended, tenderness, guarding, rebound, rigid Extremities exam: Present: normal inspection, full ROM, normal capillary refill. Absent: tenderness, pedal edema, joint swelling, calf tenderness Back exam: Present: normal inspection Neurological exam: Present: alert, oriented X3, CN II-XII intact Expanded Patient oriented to: Present: person, place, time Speech: Present: fluid speech Cranial nerves: EOM's Intact: Normal Cerebellar function: Finger to Nose: Normal Upper motor neuron: Pronator Drift: Normal Sensory exam: Upper Extremity Light Touch: Normal, Lower Extremity Light Touch: Normal Motor strength exam: RUE: 5, LUE: 5, RLE: 5, LLE: 5 Eye Response: (4) open spontaneously Motor Response: (6) obeys commands Verbal Response: (5) oriented Sohail Total: 15 Psychiatric exam: Present: normal affect, normal mood Skin exam: Present: warm, dry, intact, normal color. Absent: rash Course Vital Signs 01/25/19 01/25/19 10:51 15:43 Temperature 99.2 F 98.8 F Pulse Rate 77 74 Respiratory 16 18 Rate Blood Pressure 138/92 117/76 O2 Sat by Pulse 100 95 Oximetry Medical Decision Making - Medical Decision Making Patient is a 38 year old male with CC of headche, and complains of R eye blurry vision on awakening. Patient has a history of brain shunt and seizure disorder. Patient at this time has no neurological deficits. Patient sttes that he has R rib pain, slight cough. At this time patient given migraine cocktail, CT brain and labs obtained. CT shows no acute process. CXR is normal. Patient labs are unremarkable. Patient was reevaluated and states that he is ready to go home and is hungry. Discharged with referral to see his PCP and neurology. - Lab Data Result diagrams: 01/25/19 12:15 01/25/19 12:15 Lab Results 01/25/19 01/25/19 01/25/19 Range/Units 12:15 12:15 12:15 WBC 8.9 (3.8-10.6) k/uL RBC 5.37 (4.30-5.90) m/uL Hgb 15.8 (13.0-17.5) gm/dL Hct 48.0 (39.0-53.0) % MCV 89.5 (80.0-100.0) fL MCH 29.4 (25.0-35.0) pg MCHC 32.8 (31.0-37.0) g/dL RDW 13.2 (11.5-15.5) % Plt Count 275 (150-450) k/uL Neutrophils % 78 % Lymphocytes % 14 % Monocytes % 5 % Eosinophils % 2 % Basophils % 0 % Neutrophils # 7.0 (1.3-7.7) k/uL Lymphocytes # 1.2 (1.0-4.8) k/uL Monocytes # 0.4 (0-1.0) k/uL Eosinophils # 0.2 (0-0.7) k/uL Basophils # 0.0 (0-0.2) k/uL Sodium 141 (137-145) mmol/L Potassium 4.5 (3.5-5.1) mmol/L Chloride 112 H (98-107) mmol/L Carbon Dioxide 23 (22-30) mmol/L Anion Gap 6 mmol/L BUN 13 (9-20) mg/dL Creatinine 0.67 (0.66-1.25) mg/dL Est GFR (CKD-EPI)AfAm >90 (>60 ml/min/1.73 sqM) Est GFR (CKD-EPI)NonAf >90 (>60 ml/min/1.73 sqM) Glucose 97 (74-99) mg/dL Calcium 9.4 (8.4-10.2) mg/dL Total Bilirubin 0.6 (0.2-1.3) mg/dL AST 16 L (17-59) U/L ALT 32 (21-72) U/L Alkaline Phosphatase 55 (38-126) U/L Total Protein 7.2 (6.3-8.2) g/dL Albumin 4.2 (3.5-5.0) g/dL Influenza Type A RNA Not Detected (Not Detectd) Influenza Type B (PCR) Not Detected (Not Detectd) - Radiology Data Radiology results: report reviewed Periventricular chronic appearing white matter changes present previously. Hypodensity with calcium occasional left watershed region. Old infarct is favored within the differential. This is present previously stable. Disposition Clinical Impression: Migraine, Seizure disorder Disposition: HOME SELF-CARE Condition: Good Instructions (If sedation given, give patient instructions): Acute Headache (ED) Additional Instructions: Follow-up with primary care doctor and neurology. Return to emergency department if any alarming signs or symptoms occur. Is patient prescribed a controlled substance at d/c from ED?: No Referrals: Luis Felipe Tucker MD [Primary Care Provider] - 1-2 days Time of Disposition: 15:08
[2019-01-25 12:33] LABS: Basophils % (A) 0 %; Eosinophils # (A) 0.2 k/uL (0-0.7); Eosinophils % (A) 2 %; HGB 15.8 gm/dL (13.0-17.5); Lymphocytes # (A) 1.2 k/uL (1.0-4.8); Lymphocytes % (A) 14 %; MCH 29.4 pg (25.0-35.0); MCHC 32.8 g/dL (31.0-37.0); MCV 89.5 fL (80.0-100.0); Mean Platelet Volume 6.5; Monocytes # (A) 0.4 k/uL (0-1.0); Monocytes % (A) 5 %; Neutrophils % (A) 78 %; Platelet Count 275 k/uL (150-450); RBC 5.37 m/uL (4.30-5.90); RDW 13.2 % (11.5-15.5); WBC 8.9 k/uL (3.8-10.6)
[2019-01-25 12:44] LABS: ALT 32 U/L (21-72); AST 16 U/L (17-59); Albumin 4.2 g/dL (3.5-5.0); Alkaline Phosphatase 55 U/L (38-126); Anion Gap 6 mmol/L; Blood Urea Nitrogen 13 mg/dL (9-20); Calcium 9.4 mg/dL (8.4-10.2); Carbon Dioxide 23 mmol/L (22-30); Chloride 112 mmol/L (98-107); Glucose 97 mg/dL (74-99); Potassium 4.5 mmol/L (3.5-5.1); Sodium 141 mmol/L (137-145); Total Bilirubin 0.6 mg/dL (0.2-1.3); Total Protein 7.2 g/dL (6.3-8.2)
--- NOTE | 2019-01-25 13:08 | CT ---
EXAMINATION TYPE: CT brain wo con DATE OF EXAM: 01/25/2019 COMPARISON: 07/01/2017 INDICATION: Headache, light sensitivity DLP: 1134.4 mGycm, Automated exposure control for dose reduction was used. CONTRAST: None CT of the brain is performed utilizing 3 mm thick sections through the posterior fossa and 3 mm thick sections through the remaining calvarium. Study is performed within 24 hours of arrival to the hosp [facility]. No abnormal hyperdensity is present to suggest an acute intracranial hemorrhage. No mass lesion is evident. No acute infarcts are evident. There may be an old left watershed infarct. Schizencephaly could be co nsidered. Calcification is within this region. Chronic or congenital changes could be considered. The re is some periventricular white matter hypodensity, suspected to be chronic white matter ischemic ch anges. This is greater than expected for the patient age. Ventricles and sulci are appropriate for the patient age. Paranasal sinuses and mastoid air cells within the [id number] are clear. IMPRESSIONS: 1. Periventricular chronic appearing white matter changes present previously. 2. Hypodensity with calcification in the left watershed region. Old infarct is favored within the dif ferential. This present previously and stable.
--- NOTE | 2019-01-25 13:57 | XR ---
EXAMINATION TYPE: XR chest 2V DATE OF EXAM: 01/25/2019 COMPARISON: 12/31/2017 INDICATION: Pain TECHNIQUE: Frontal and lateral views of the chest are obtained. FINDINGS: The heart size is prominent. The pulmonary vasculature is normal. The lungs are clear. IMPRESSION: 1. Mild cardiomegaly, stable. 2. No acute pulmonary process.
[2019-01-25 15:44] VITALS: BP 117/76; PULSE 74; RESP 18; TEMP 98.8
== END 2019-01-25 15:45 | disposition home or self-care (01) ==
LOC: EC 10:36
DX: G40.909 Epilepsy, unspecified, not intractable, without status epilepticus (principal); G43.909 Migraine, unspecified, not intractable, without status migrainosus; R05 Cough; M54.9 Dorsalgia, unspecified; R07.81 Pleurodynia; Z87.891 Personal history of nicotine dependence; Z79.899 Other long term (current) drug therapy; Z88.8 Allergy status to other drugs, medicaments and biological substances
CPT/HCPCS: 36415; 70450; 71046; 80053; 85025; 87502; 96361; 96374; 96375; 99285

== ENCOUNTER 2019-05-18 18:10 | Emergency (ER) | payer OTHER ==
[2019-05-18] MEDS ORDERED: LORazepam 2 MG/ML INJ IV STA (18:43)
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
[2019-05-18 19:09] LABS: Basophils % (A) 0 %; Eosinophils # (A) 0.1 k/uL (0-0.7); Eosinophils % (A) 1 %; HGB 15.7 gm/dL (13.0-17.5); Lymphocytes # (A) 2.3 k/uL (1.0-4.8); Lymphocytes % (A) 18 %; MCH 28.4 pg (25.0-35.0); MCHC 32.1 g/dL (31.0-37.0); MCV 88.3 fL (80.0-100.0); Mean Platelet Volume 6.5; Monocytes # (A) 0.8 k/uL (0-1.0); Monocytes % (A) 6 %; Neutrophils # (A) 9.3 k/uL (1.3-7.7); Neutrophils % (A) 73 %; Platelet Count 280 k/uL (150-450); RBC 5.54 m/uL (4.30-5.90); RDW 13.4 % (11.5-15.5); WBC 12.7 k/uL (3.8-10.6)
[2019-05-18 19:23] LABS: ALT 17 U/L (21-72); AST 25 U/L (17-59); African American GFR (CKD) >90 (>60 ml/min/1.73 sqM); Albumin 4.7 g/dL (3.5-5.0); Alkaline Phosphatase 79 U/L (38-126); Anion Gap 12 mmol/L; Blood Urea Nitrogen 10 mg/dL (9-20); Calcium 9.3 mg/dL (8.4-10.2); Carbon Dioxide 24 mmol/L (22-30); Chloride 102 mmol/L (98-107); Glucose 118 mg/dL (74-99); Non-African American GFR(CKD) >90 (>60 ml/min/1.73 sqM); Potassium 3.4 mmol/L (3.5-5.1); Sodium 138 mmol/L (137-145); Total Bilirubin 0.9 mg/dL (0.2-1.3); Total Protein 8.2 g/dL (6.3-8.2)
[2019-05-18 20:52] LABS: Amphetamine Screen,Urine Not Detected (NotDetected); Barbiturate Screen,Urine Not Detected (NotDetected); Benzodiazepines Screen,Urine Detected (NotDetected); Cocaine Screen,Urine Not Detected (NotDetected); Methadone Screen, Urine Not Detected (NotDetected); Opiate Screen,Urine Not Detected (NotDetected); Oxycodone Screen, Urine Not Detected (NotDetected); Phencyclidine Screen,Urine Not Detected (NotDetected); Tricyclic Antidepressant,Urine Not Detected (NotDetected); Urn Cannabinoid Scrn Detected (NotDetected)
[2019-05-19 00:05] VITALS: BP 115/69; PULSE 83; RESP 16; TEMP 98.9
== END 2019-05-19 00:35 | disposition home or self-care (01) ==
LOC: EC 18:10
DX: R56.1 Post traumatic seizures (principal); Z87.891 Personal history of nicotine dependence; Z98.890 Other specified postprocedural states; Z79.899 Other long term (current) drug therapy; Z88.8 Allergy status to other drugs, medicaments and biological substances; Y04.0XXA Assault by unarmed brawl or fight, initial encounter; Y92.59 Other trade areas as the place of occurrence of the external cause
CPT/HCPCS: 36415; 93005; 80053; 80177; 85025; 80306; 99284; 96374; J2060

== ENCOUNTER 2019-08-19 19:13 | Emergency (ER) | payer OTHER ==
[2019-08-19] MEDS ORDERED: SODIUM CHLORIDE 0.9% 1,000 ML IV STA (19:35)
--- NOTE | 2019-08-19 20:26 | ED ---
Seizure HPI - General Chief Complaint: Seizure Stated Complaint: Seizure Time Seen by Provider: 08/19/19 19:18 Source: EMS Mode of arrival: EMS Limitations: altered mental status - History of Present Illness Initial Comments: 39-year-old male patient with past medical history significant for seizures presents to the emergency department today for evaluation after having seizure- like activity. Patient came home from hunting and began to hear weird sound and had a bad taste in his mouth. Patient states this is his usual aura prior to having a seizure. Patient states that symptoms started to worsen so he did take a Klonopin. They then called EMS. EMS personnel states the patient did have a focal seizure to the right side of his body. States that he was not verbally responsive during the episode. Patient is in a postictal state upon arrival. He denies any current pain or discomfort. Denies any recent head injury or illness. States he does take Keppra as directed. Denies any alcohol or drug use. Patient denies any recent rash, fever, chills, shortness breath, chest pain, abdominal pain, nausea, vomiting, diarrhea, constipation, back pain, numbness, tingling, dizziness, weakness, hematuria, dysuria, urinary urgency, urinary frequency, headache, visual changes, or any other complaints. - Related Data Home Medications Medication Instructions Recorded Confirmed levETIRAcetam [Keppra] 1,500 mg PO DAILY@1000 05/18/19 08/19/19 Klonopin Odt Wafer 1mg 1 mg PO DAILY PRN 08/19/19 08/19/19 levETIRAcetam [Keppra] 2,000 mg PO HS@2200 08/19/19 08/19/19 Allergies Allergy/AdvReac Type Severity Reaction Status Date / Time phenobarbital Allergy Unknown Verified 08/19/19 19:52 Childhood phenytoin sodium Allergy Unknown Verified 08/19/19 19:52 [From Dilantin] Childhood phenytoin sodium extended Allergy Unknown Verified 08/19/19 19:52 [From Dilantin] Childhood Review of Systems ROS Statement: Those systems with pertinent positive or pertinent negative responses have been documented in the HPI. ROS Other: All systems not noted in ROS Statement are negative. 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 14 years old, shunts Past Anesthesia/Blood Transfusion Reactions: No Reported Reaction Past Psychological History: No Psychological Hx Reported Smoking Status: Former smoker Past Alcohol Use History: Rare Past Drug Use History: Marijuana General Exam Limitations: altered mental status General appearance: alert, in no apparent distress, other (This is a well- developed, well-nourished adult male patient in no acute distress. Vital signs upon presentation are temperature 97.0F, pulse 88, respirations 16, blood pressure 108/75, pulse ox 97% on room air.) Eye exam: Present: normal appearance, PERRL, EOMI. Absent: scleral icterus, conjunctival injection, periorbital swelling ENT exam: Present: normal exam, normal oropharynx, mucous membranes moist Respiratory exam: Present: normal lung sounds bilaterally. Absent: respiratory distress, wheezes, rales, rhonchi, stridor Cardiovascular Exam: Present: regular rate, normal rhythm, normal heart sounds. Absent: systolic murmur, diastolic murmur, rubs, gallop, clicks GI/Abdominal exam: Present: soft, normal bowel sounds. Absent: distended, t enderness, guarding, rebound, rigid Neurological exam: Present: alert, oriented X3, CN II-XII intact, other (Strength in all 4 extremities is 5/5.) Psychiatric exam: Present: normal affect, normal mood Skin exam: Present: warm, dry, intact, normal color. Absent: rash Course Vital Signs 08/19/19 08/19/19 19:20 21:37 Temperature 97.0 F L 98.2 F Pulse Rate 88 87 Respiratory 16 18 Rate Blood Pressure 108/75 138/97 O2 Sat by Pulse 97 100 Oximetry Medical Decision Making - Medical Decision Making 39-year-old male patient presents to the emergency department today for evaluation after having a seizure. Physical examination is unremarkable. He is somewhat postictal and confused however he did also receive 6 mg of Valium in the ambulance. Labs reviewed and are unremarkable. Keppra level was sent. Upon reevaluation is resting comfortably. No further seizure activity. He'll be discharged to follow-up with his neurologist for further evaluation. He is instructed to follow-up with his primary care physician for recheck in 1-2 days. He verbalizes understanding and agrees with this plan. - Lab Data Result diagrams: 08/19/19 19:12 08/19/19 19:12 Lab Results 08/19/19 08/19/19 08/19/19 Range/Units 19:12 19:12 19:12 WBC 10.8 H (3.8-10.6) k/uL RBC 4.89 (4.30-5.90) m/uL Hgb 15.0 (13.0-17.5) gm/dL Hct 44.3 (39.0-53.0) % MCV 90.6 (80.0-100.0) fL MCH 30.7 (25.0-35.0) pg MCHC 33.9 (31.0-37.0) g/dL RDW 12.8 (11.5-15.5) % Plt Count 248 (150-450) k/uL Neutrophils % 87 % Lymphocytes % 8 % Monocytes % 4 % Eosinophils % 1 % Basophils % 0 % Neutrophils # 9.4 H (1.3-7.7) k/uL Lymphocytes # 0.8 L (1.0-4.8) k/uL Monocytes # 0.4 (0-1.0) k/uL Eosinophils # 0.1 (0-0.7) k/uL Basophils # 0.0 (0-0.2) k/uL Sodium 140 (137-145) mmol/L Potassium 4.1 (3.5-5.1) mmol/L Chloride 110 H (98-107) mmol/L Carbon Dioxide 23 (22-30) mmol/L Anion Gap 7 mmol/L BUN 14 (9-20) mg/dL Creatinine 0.70 (0.66-1.25) mg/dL Est GFR (CKD-EPI)AfAm >90 (>60 ml/min/1.73 sqM) Est GFR (CKD-EPI)NonAf >90 (>60 ml/min/1.73 sqM) Glucose 98 (74-99) mg/dL Calcium 9.1 (8.4-10.2) mg/dL Total Bilirubin 0.4 (0.2-1.3) mg/dL AST 19 (17-59) U/L ALT 25 (21-72) U/L Alkaline Phosphatase 53 (38-126) U/L Total Protein 7.1 (6.3-8.2) g/dL Albumin 4.0 (3.5-5.0) g/dL Urine Color Yellow Urine Appearance Clear (Clear) Urine pH 5.5 (5.0-8.0) Ur Specific [place] 1.025 (1.001-1.035) Urine Protein Negative (Negative) Urine Glucose (UA) Negative (Negative) Urine Ketones Negative (Negative) Urine Blood Negative (Negative) Urine Nitrite Negative (Negative) Urine Bilirubin Negative (Negative) Urine Urobilinogen <2.0 (<2.0) mg/dL Ur Leukocyte Esterase Negative (Negative) Serum Alcohol <10 mg/dL - EKG Data -: EKG Interpreted by Ms EKG Comments: EKG obtained at 2027 shows normal sinus rhythm with a sinus arrhythmia. Ventricular rate is 66, NE interval 138, QRS duration 94, QT 360, QTC 377. No evidence of ST elevation or depression. Disposition Clinical Impression: Seizure Disposition: HOME SELF-CARE Condition: Good Instructions (If sedation given, give patient instructions): Recurrent Seizures in Adults (ED) Additional Instructions: Continue all medications as directed. Follow up with her neurologist for recheck as soon as possible. Follow-up through primary care physician for recheck in 1-2 days. Return to the emergency department immediately for any new, worsening, or concerning symptoms. Is patient prescribed a controlled substance at d/c from ED?: No Referrals: Luis Felipe Tucker MD [Primary Care Provider] - 1-2 days Time of Disposition: 21:16
[2019-08-19 20:31] LABS: Appearance,Urine Clear (Clear); Bilirubin,Urine Negative (Negative); Blood,Urine Negative (Negative); Color,Urine Yellow; Glucose,Urine (UA) Negative (Negative); Ketones,Urine Negative (Negative); Leukocyte Esterase,Urine Negative (Negative); Nitrite,Urine Negative (Negative); PH, Urine 5.5 (5.0-8.0); Protein,Urine Negative (Negative); Specific Gravity,Urine 1.025 (1.001-1.035); Urobilinogen,Urine <2.0 mg/dL (<2.0)
[2019-08-19 20:32] LABS: Basophils % (A) 0 %; Eosinophils # (A) 0.1 k/uL (0-0.7); Eosinophils % (A) 1 %; HCT 44.3 % (39.0-53.0); Lymphocytes # (A) 0.8 k/uL (1.0-4.8); Lymphocytes % (A) 8 %; MCH 30.7 pg (25.0-35.0); MCHC 33.9 g/dL (31.0-37.0); MCV 90.6 fL (80.0-100.0); Monocytes # (A) 0.4 k/uL (0-1.0); Monocytes % (A) 4 %; Neutrophils # (A) 9.4 k/uL (1.3-7.7); Neutrophils % (A) 87 %; Platelet Count 248 k/uL (150-450); RBC 4.89 m/uL (4.30-5.90); RDW 12.8 % (11.5-15.5); WBC 10.8 k/uL (3.8-10.6)
[2019-08-19 20:43] LABS: ALT 25 U/L (21-72); AST 19 U/L (17-59); African American GFR (CKD) >90 (>60 ml/min/1.73 sqM); Alcohol <10 mg/dL; Alkaline Phosphatase 53 U/L (38-126); Anion Gap 7 mmol/L; Blood Urea Nitrogen 14 mg/dL (9-20); Calcium 9.1 mg/dL (8.4-10.2); Carbon Dioxide 23 mmol/L (22-30); Chloride 110 mmol/L (98-107); Glucose 98 mg/dL (74-99); Potassium 4.1 mmol/L (3.5-5.1); Sodium 140 mmol/L (137-145); Total Bilirubin 0.4 mg/dL (0.2-1.3); Total Protein 7.1 g/dL (6.3-8.2)
[2019-08-19 21:39] VITALS: BP 138/97; PULSE 87; RESP 18; TEMP 98.2
== END 2019-08-19 21:39 | disposition home or self-care (01) ==
LOC: EC 19:13
DX: G40.909 Epilepsy, unspecified, not intractable, without status epilepticus (principal); Z79.899 Other long term (current) drug therapy; Z88.8 Allergy status to other drugs, medicaments and biological substances; Z87.891 Personal history of nicotine dependence
CPT/HCPCS: 36415; 93005; 80053; 80177; 85025; 81003; 99284; 96360; 96361; G0480; 80320

== ENCOUNTER 2020-07-05 23:37 | Emergency (ER) | payer OTHER ==
[2020-07-05] MEDS ORDERED: SODIUM CHLORIDE 0.9% 1,000 ML IV STA (23:44)
--- NOTE | 2020-07-05 23:44 | ED ---
Seizure HPI - General Stated Complaint: SEIZURE Time Seen by Provider: 07/05/20 23:44 - History of Present Illness Initial Comments: Tahir is a 40-year-old male with a history of seizure disorder who presents the ER today for evaluation of recurrent seizures. Initial history was provided by EMS and the patient was postictal upon arrival. Patient has a history of seizure disorder he is on Keppra as well as a new medication which family reports starts with an elbow to not sure what the medication is. They did not have the medication with them at the location of the seizure as they were visiting a friend's house. Family called 911 after the patient had a single seizure EMS reports the patient has had 5-7 additional petit [place] seizures and was treated with IM Versed. - Related Data Home Medications Medication Instructions Recorded Confirmed levETIRAcetam [Keppra] 1,500 mg PO DAILY@1000 05/18/19 08/19/19 Klonopin Odt Wafer 1mg 1 mg PO DAILY PRN 08/19/19 08/19/19 levETIRAcetam [Keppra] 2,000 mg PO HS@2200 08/19/19 08/19/19 Allergies Allergy/AdvReac Type Severity Reaction Status Date / Time phenobarbital Allergy Unknown Verified 08/19/19 19:52 Childhood phenytoin sodium Allergy Unknown Verified 08/19/19 19:52 [From Dilantin] Childhood phenytoin sodium extended Allergy Unknown Verified 08/19/19 19:52 [From Dilantin] Childhood Review of Systems ROS Statement: Those systems with pertinent positive or pertinent negative responses have been documented in the HPI. ROS Other: All systems not noted in ROS Statement are negative. 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 14 years old, shunts Past Anesthesia/Blood Transfusion Reactions: No Reported Reaction Past Psychological History: No Psychological Hx Reported Past Alcohol Use History: Rare Past Drug Use History: Marijuana General Exam - General Exam Comments Initial Comments: Physical Exam GENERAL: Patient is well-developed and well-nourished. Patient is nontoxic and well- hydrated and is in no distress. HENT: Normocephalic, Atraumatic. EYES: PERRL, EOMI PULMONARY: Unlabored respirations. No audible rales rhonchi or wheezing was noted. CARDIOVASCULAR: There is a regular rate and rhythm without any murmurs gallops or rubs. ABDOMEN: Soft and nontender with normal bowel sounds. SKIN: Skin is clear with no lesions or rashes and otherwise unremarkable. : Deferred NEUROLOGIC: Patient is alert and oriented x to person and year, somewhat confused about how he got the hospital. Moving all extremities spontaneously No seizure activity noted in the ER MUSCULOSKELETAL: Normal extremities with adequate strength and full range of motion. No lower extremity swelling or edema. No calf tenderness. PSYCHIATRIC: Normal psychiatric evaluation. Course Vital Signs 07/05/20 07/06/20 23:39 00:45 Temperature 98.7 F Pulse Rate 101 H 88 Respiratory 18 17 Rate Blood Pressure 100/73 120/82 O2 Sat by Pulse 98 98 Oximetry Medical Decision Making - Medical Decision Making Patient was seen and evaluated history is obtained from EMS and eventually significant other at bedside Patient with a known history of seizures, had breakthrough seizures today Labs are ordered lactic was mildly elevated consistent with seizure Patient was loaded with Keppra Patient had no seizures while in the emergency department and is eager for discharge home with follow-up with neurology outpatient - Lab Data Result diagrams: 07/05/20 23:47 07/05/20 23:47 Lab Results 07/05/20 07/05/20 07/05/20 Range/Units 23:45 23:47 23:47 WBC 8.5 (3.8-10.6) k/uL RBC 5.21 (4.30-5.90) m/uL Hgb 15.6 (13.0-17.5) gm/dL Hct 46.8 (39.0-53.0) % MCV 89.8 (80.0-100.0) fL MCH 29.9 (25.0-35.0) pg MCHC 33.3 (31.0-37.0) g/dL RDW 13.1 (11.5-15.5) % Plt Count 289 (150-450) k/uL Neutrophils % 57 % Lymphocytes % 33 % Monocytes % 5 % Eosinophils % 3 % Basophils % 1 % Neutrophils # 4.8 (1.3-7.7) k/uL Lymphocytes # 2.8 (1.0-4.8) k/uL Monocytes # 0.4 (0-1.0) k/uL Eosinophils # 0.2 (0-0.7) k/uL Basophils # 0.1 (0-0.2) k/uL Sodium 138 (137-145) mmol/L Potassium 3.5 (3.5-5.1) mmol/L Chloride 101 (98-107) mmol/L Carbon Dioxide 28 (22-30) mmol/L Anion Gap 9 mmol/L BUN 9 (9-20) mg/dL Creatinine 0.82 (0.66-1.25) mg/dL Est GFR (CKD-EPI)AfAm >90 (>60 ml/min/1.73 sqM) Est GFR (CKD-EPI)NonAf >90 (>60 ml/min/1.73 sqM) Glucose 133 H (74-99) mg/dL Plasma Lactic Acid Gerald 3.5 H* (0.7-2.0) mmol/L Calcium 9.3 (8.4-10.2) mg/dL Total Bilirubin 0.9 (0.2-1.3) mg/dL AST 22 (17-59) U/L ALT 13 (4-49) U/L Alkaline Phosphatase 60 (38-126) U/L Total Protein 7.6 (6.3-8.2) g/dL Albumin 4.5 (3.5-5.0) g/dL Serum Alcohol <10 mg/dL - EKG Data -: EKG Interpreted by Me EKG shows normal: sinus rhythm EKG Comments: EKG was obtained due to complaint of seizure, EKG obtained at 2342 rate is 101 rhythm is sinus tachycardia, normal axis, normal intervals, MA 152, QRS 90, QTc [address] elevations or depressions no evidence of acute ischemia or infarction. Disposition Clinical Impression: Breakthrough seizure Disposition: HOME SELF-CARE Condition: Stable Instructions (If sedation given, give patient instructions): Recurrent Seizures in Adults (ED) Is patient prescribed a controlled substance at d/c from ED?: No Referrals: None,Stated [Primary Care Provider] - 1-2 days
[2020-07-05] MEDS ORDERED: levETIRAcetam IV 1,000 MG in SALINE 1 100ML.BAG IVPB STA (23:52)
[2020-07-05 23:56] LABS: Basophils # (A) 0.1 k/uL (0-0.2); Basophils % (A) 1 %; Eosinophils # (A) 0.2 k/uL (0-0.7); Eosinophils % (A) 3 %; HCT 46.8 % (39.0-53.0); HGB 15.6 gm/dL (13.0-17.5); Lymphocytes # (A) 2.8 k/uL (1.0-4.8); Lymphocytes % (A) 33 %; MCH 29.9 pg (25.0-35.0); MCHC 33.3 g/dL (31.0-37.0); MCV 89.8 fL (80.0-100.0); Mean Platelet Volume 7.1; Monocytes # (A) 0.4 k/uL (0-1.0); Monocytes % (A) 5 %; Neutrophils # (A) 4.8 k/uL (1.3-7.7); Neutrophils % (A) 57 %; Platelet Count 289 k/uL (150-450); RBC 5.21 m/uL (4.30-5.90); RDW 13.1 % (11.5-15.5); WBC 8.5 k/uL (3.8-10.6)
[2020-07-06 00:07] LABS: ALT 13 U/L (4-49); AST 22 U/L (17-59); African American GFR (CKD) >90 (>60 ml/min/1.73 sqM); Albumin 4.5 g/dL (3.5-5.0); Alcohol <10 mg/dL; Alkaline Phosphatase 60 U/L (38-126); Anion Gap 9 mmol/L; Blood Urea Nitrogen 9 mg/dL (9-20); Calcium 9.3 mg/dL (8.4-10.2); Carbon Dioxide 28 mmol/L (22-30); Chloride 101 mmol/L (98-107); Glucose 133 mg/dL (74-99); Non-African American GFR(CKD) >90 (>60 ml/min/1.73 sqM); Sodium 138 mmol/L (137-145); Total Bilirubin 0.9 mg/dL (0.2-1.3); Total Protein 7.6 g/dL (6.3-8.2)
[2020-07-06 00:12] LABS: Potassium 3.5 mmol/L (3.5-5.1)
[2020-07-06 02:01] VITALS: PULSE 88
[2020-07-06 02:18] VITALS: BP 102/61; RESP 18; TEMP 97.6
== END 2020-07-06 02:12 | disposition home or self-care (01) ==
LOC: EC 23:37
DX: G40.909 Epilepsy, unspecified, not intractable, without status epilepticus (principal); Z88.8 Allergy status to other drugs, medicaments and biological substances; Z98.890 Other specified postprocedural states
CPT/HCPCS: 36415 ×2; 93005; 80053; 83605; 85025; 99284; 96365; 96361 ×2; G0480; J1953; 80320

== ENCOUNTER → 2020-08-17 | Outpatient (CLI) | payer OTHER ==
--- NOTE | 2020-08-18 08:19 | USB ---
Reason for exam: clinical finding. Physical Findings: Nurse Summary: Patient complains of left breast lump x 2 years, 2cm lump 12 o'clock left breast, movable, circumscribed (nurse mj). US Breast Limited LT Technologist: Kierra Humphries Left complete breast ultrasound includes all four quadrants, the retroareolar region and axilla. Finding demonstrates 2.2 x 2.4 x 1.4cm oval, hypoechoic lesion at 12 o'clock. These results were verbally communicated with the patient and result sheet given to the patient on 08/17/20. ASSESSMENT: Suspicious, BI-RAD 4 RECOMMENDATION: Ultrasound core biopsy of the left breast. Patient has an appointment with Dr. Tucker on 08/18/20 and will discuss results. PRELIMINARY REPORT CALLED AND FAXED TO DR. TUCKER ON 08/18/20.
== END | disposition home or self-care (01) ==
LOC: RADUSWWP 14:29
PROVIDERS: ATTEND Pediatrics
DX: D17.79 Benign lipomatous neoplasm of other sites (principal)

== ENCOUNTER 2020-09-20 14:40 | Emergency (ER) | payer OTHER ==
[2020-09-20] MEDS ORDERED: LORazepam 2 MG/ML INJ IV STA ×2 (14:51→14:59)
[2020-09-20 14:52] LABS: Glucose,Whole Blood 115 mg/dL (75-99)
[2020-09-20 14:54] VITALS: TEMP 98.5
[2020-09-20 15:22] LABS: Basophils # (A) 0.1 k/uL (0-0.2); Basophils % (A) 2 %; Eosinophils # (A) 0.1 k/uL (0-0.7); Eosinophils % (A) 1 %; HCT 49.4 % (39.0-53.0); HGB 16.4 gm/dL (13.0-17.5); Lymphocytes # (A) 1.9 k/uL (1.0-4.8); Lymphocytes % (A) 21 %; MCH 31.1 pg (25.0-35.0); MCHC 33.1 g/dL (31.0-37.0); MCV 93.9 fL (80.0-100.0); Mean Platelet Volume 7.1; Monocytes # (A) 0.4 k/uL (0-1.0); Monocytes % (A) 5 %; Neutrophils # (A) 6.1 k/uL (1.3-7.7); Neutrophils % (A) 69 %; Platelet Count 305 k/uL (150-450); RBC 5.26 m/uL (4.30-5.90); WBC 8.8 k/uL (3.8-10.6)
[2020-09-20 15:37] LABS: ALT 17 U/L (4-49); AST 23 U/L (17-59); African American GFR (CKD) >90 (>60 ml/min/1.73 sqM); Albumin 4.6 g/dL (3.5-5.0); Alkaline Phosphatase 69 U/L (38-126); Anion Gap 20 mmol/L; Blood Urea Nitrogen 11 mg/dL (9-20); Carbon Dioxide 17 mmol/L (22-30); Chloride 109 mmol/L (98-107); Glucose 129 mg/dL (74-99); Non-African American GFR(CKD) >90 (>60 ml/min/1.73 sqM); Potassium 4.5 mmol/L (3.5-5.1); Sodium 146 mmol/L (137-145); Total Bilirubin 0.4 mg/dL (0.2-1.3); Total Protein 7.9 g/dL (6.3-8.2)
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
[2020-09-20] MEDS ORDERED: SODIUM CHLORIDE 0.9% 1,000 ML IV ONE (15:58)
[2020-09-20] MEDS ORDERED: SODIUM CHLORIDE 0.9% 500 ML 500 ML IV ONE (15:58)
--- NOTE | 2020-09-20 15:59 | CT ---
EXAMINATION TYPE: CT brain wo con DATE OF EXAM: 09/20/2020 COMPARISON: 01/25/2019. HISTORY: seizure activity CT DLP: 1202.4 mGycm. Automated Exposure Control for Dose Reduction was Utilized. TECHNIQUE: CT scan of the head is performed without contrast. FINDINGS: There is no acute intracranial hemorrhage, mass effect, or midline shift identified. Ther e is stable moderate encephalomalacia in the left parietal lobe with mild internal calcifications. St able associated overlying craniotomy. Otherwise the ventricles and sulci are within normal limits in size. The globes are intact and the v isualized sinuses are clear. IMPRESSION: No acute intracranial hemorrhage, mass effect, or midline shift is seen. Stable left parietal encephalomalacia.
[2020-09-20] MEDS ORDERED: SODIUM CHLORIDE 0.9% 1,000 ML IV SCH (16:00)
[2020-09-20 16:08] VITALS: BP 94/59; PULSE 65; RESP 18
== END 2020-09-20 17:16 | disposition home or self-care (01) ==
LOC: EC 14:40
DX: G40.909 Epilepsy, unspecified, not intractable, without status epilepticus (principal); F17.200 Nicotine dependence, unspecified, uncomplicated; Z79.899 Other long term (current) drug therapy; Z87.820 Personal history of traumatic brain injury
CPT/HCPCS: 36415; 93005; 80053; 80177; 85025; 70450; 99284; 96374; 96361 ×2; J2060

== ENCOUNTER 2021-01-16 19:54 | Emergency (ER) | payer OTHER ==
[2021-01-16] MEDS: SODIUM CHLORIDE 0.9% 1,000 ML IV STA (20:41)
--- NOTE | 2021-01-16 20:43 | ED ---
General Adult HPI - General Chief complaint: Seizure Stated complaint: Seizure Time Seen by Provider: 01/16/21 19:58 Source: EMS Mode of arrival: EMS Limitations: altered mental status - History of Present Illness Initial comments: 40-year-old male patient has medical history significant for seizures and hematocrit brain injury as a child presents to the emergency department today for evaluation of seizure. is present and states that he started having aura symptoms which includes hearing a sound. States then had some tremors to the right arm. He developed more pronounced tremors to the right arm and became confused so she administered his klonopin. She called ambulance just in case he progressed to more generalized seizure, by the time EMS arrived he was still confused so he was transported here. He denies any current pain, headache, dizz iness, or weakness. States he feels fine. Does remain somewhat disoriented, which states is not unusual. Patient denies any recent rash, fever, chills, cough, shortness of breath, chest pain, abdominal pain, nausea, vomiting, diarrhea, constipation, back pain, numbness, tingling, hematuria, dysuria, urinary urgency, urinary frequency, visual changes, or any other complaints. - Related Data Home Medications Medication Instructions Recorded Confirmed Klonopin Odt Wafer 1mg 1 mg PO DAILY PRN 08/19/19 01/16/21 Loratadine [Claritin] 10 mg PO DAILY 01/16/21 01/16/21 OXcarbazepine [Trileptal] 300 mg PO BID 01/16/21 01/16/21 levETIRAcetam [Keppra] 2,000 mg PO DAILY 01/16/21 01/16/21 levETIRAcetam [Keppra] 2,500 mg PO HS 01/16/21 01/16/21 Allergies Allergy/AdvReac Type Severity Reaction Status Date / Time phenobarbital Allergy Unknown Verified 01/16/21 22:02 Childhood phenytoin sodium Allergy Unknown Verified 01/16/21 22:02 [From Dilantin] Childhood phenytoin sodium extended Allergy Unknown Verified 01/16/21 22:02 [From Dilantin] Childhood Review of Systems ROS Statement: Those systems with pertinent positive or pertinent negative responses have been documented in the HPI. ROS Other: All systems not noted in ROS Statement are negative. Past Medical History Past Medical History: Seizure Disorder Additional Past Medical History / Comment(s): CHI, TBI History of Any Multi-Drug Resistant Organisms: None Reported Additional Past Surgical History / Comment(s): brain surgery 30% of left hemishphere removed when patient was 14 years old, shunts Past Anesthesia/Blood Transfusion Reactions: No Reported Reaction Past Psychological History: No Psychological Hx Reported Smoking Status: Current every day smoker Past Alcohol Use History: Rare Past Drug Use History: Marijuana General Exam Limitations: altered mental status General appearance: alert, in no apparent distress, other (Physical well- developed, well-nourished adult male patient in no acute distress. Vital signs upon presentation are temperature 97.8F, pulse 90, respirations 20, blood pressure 120/77, pulse ox 100% on room air.) Eye exam: Present: normal appearance, PERRL, EOMI. Absent: scleral icterus, conjunctival injection, nystagmus, periorbital swelling ENT exam: Present: normal exam, normal oropharynx, mucous membranes moist Neck exam: Present: normal inspection. Absent: tenderness, meningismus, lymphadenopathy Respiratory exam: Present: normal lung sounds bilaterally. Absent: respiratory distress, wheezes, rales, rhonchi, stridor Cardiovascular Exam: Present: regular rate, normal rhythm, normal heart sounds. Absent: systolic murmur, diastolic murmur, rubs, gallop, clicks GI/Abdominal exam: Present: soft, normal bowel sounds. Absent: distended, tenderness, guarding, rebound, rigid Neurological exam: Present: alert, CN II-XII intact. Absent: oriented X3 (Oriented 1) Expanded Speech: Present: fluid speech Cranial nerves: EOM's Intact: Normal, Nystagmus: Normal Motor strength exam: RUE: 5, LUE: 5, RLE: 5, LLE: 5 Psychiatric exam: Present: normal affect, normal mood Skin exam: Present: warm, dry, intact, normal color. Absent: rash Course Vital Signs 01/16/21 01/16/21 20:00 22:23 Temperature 97.8 F 98.0 F Pulse Rate 90 86 Respiratory 20 18 Rate Blood Pressure 124/77 130/70 O2 Sat by Pulse 100 98 Oximetry EKG Findings - EKG Comments: EKG Findings:: EKG obtained at 2052 shows normal sinus rhythm with a sinus arrhythmia, ventricular rate is 69, VT interval 134, QRS duration 106, QT 370, QTC 396. No evidence of ST elevation or depression. Medical Decision Making - Medical Decision Making 40-year-old male patient past medical history significant for TBI as a child, epilepsy currently taking Keppra and a new seizure medication, comes to the emergency department after having a focal seizure to the right arm. Physical examination is unremarkable. Is neurologically intact is somewhat disoriented. Labs reviewed and are unremarkable. Upon reevaluation he is back to baseline responding appropriately. Does feel comfortable being discharged home. Instructed to follow-up with his primary care physician and neurologist as soon as possible. Return parameters were discussed in detail. He verbalizes understanding and agrees with this plan. Case discussed with my attending Dr. Bryan. - Lab Data Result diagrams: 01/16/21 20:36 01/16/21 20:36 Lab Results 01/16/21 01/16/21 Range/Units 20:36 20:36 WBC 7.8 (3.8-10.6) k/uL RBC 4.47 (4.30-5.90) m/uL Hgb 14.0 (13.0-17.5) gm/dL Hct 39.9 (39.0-53.0) % MCV 89.2 (80.0-100.0) fL MCH 31.3 (25.0-35.0) pg MCHC 35.1 (31.0-37.0) g/dL RDW 13.0 (11.5-15.5) % Plt Count 224 (150-450) k/uL MPV 6.9 Neutrophils % 83 % Lymphocytes % 11 % Monocytes % 5 % Eosinophils % 1 % Basophils % 0 % Neutrophils # 6.5 (1.3-7.7) k/uL Lymphocytes # 0.8 L (1.0-4.8) k/uL Monocytes # 0.4 (0-1.0) k/uL Eosinophils # 0.1 (0-0.7) k/uL Basophils # 0.0 (0-0.2) k/uL Sodium 134 L (137-145) mmol/L Potassium 3.8 (3.5-5.1) mmol/L Chloride 101 (98-107) mmol/L Carbon Dioxide 25 (22-30) mmol/L Anion Gap 8 mmol/L BUN 11 (9-20) mg/dL Creatinine 0.64 L (0.66-1.25) mg/dL Est GFR (CKD-EPI)AfAm >90 (>60 ml/min/1.73 sqM) Est GFR (CKD-EPI)NonAf >90 (>60 ml/min/1.73 sqM) Glucose 126 H (74-99) mg/dL Calcium 8.8 (8.4-10.2) mg/dL Total Bilirubin 0.5 (0.2-1.3) mg/dL AST 19 (17-59) U/L ALT 11 (4-49) U/L Alkaline Phosphatase 54 (38-126) U/L Total Protein 6.5 (6.3-8.2) g/dL Albumin 3.8 (3.5-5.0) g/dL Serum Alcohol <10 mg/dL Disposition Clinical Impression: Seizure Disposition: HOME SELF-CARE Condition: Good Instructions (If sedation given, give patient instructions): Recurrent Seizures in Adults (ED) Additional Instructions: Follow-up with your primary care physician neurologist for further evaluation as soon as possible. Return to the emergency department for any new, worsening, or concerning symptoms. Is patient prescribed a controlled substance at d/c from ED?: No Referrals: Luis Felipe Tucker MD [Primary Care Provider] - 1-2 days Time of Disposition: 22:07
[2021-01-16 20:45] LABS: Basophils % (A) 0 %; Eosinophils # (A) 0.1 k/uL (0-0.7); Eosinophils % (A) 1 %; HCT 39.9 % (39.0-53.0); Lymphocytes # (A) 0.8 k/uL (1.0-4.8); Lymphocytes % (A) 11 %; MCH 31.3 pg (25.0-35.0); MCHC 35.1 g/dL (31.0-37.0); MCV 89.2 fL (80.0-100.0); Mean Platelet Volume 6.9; Monocytes # (A) 0.4 k/uL (0-1.0); Monocytes % (A) 5 %; Neutrophils # (A) 6.5 k/uL (1.3-7.7); Neutrophils % (A) 83 %; Platelet Count 224 k/uL (150-450); RBC 4.47 m/uL (4.30-5.90); WBC 7.8 k/uL (3.8-10.6)
[2021-01-16 20:57] LABS: ALT 11 U/L (4-49); AST 19 U/L (17-59); African American GFR (CKD) >90 (>60 ml/min/1.73 sqM); Albumin 3.8 g/dL (3.5-5.0); Alcohol <10 mg/dL; Alkaline Phosphatase 54 U/L (38-126); Anion Gap 8 mmol/L; Blood Urea Nitrogen 11 mg/dL (9-20); Calcium 8.8 mg/dL (8.4-10.2); Carbon Dioxide 25 mmol/L (22-30); Chloride 101 mmol/L (98-107); Glucose 126 mg/dL (74-99); Non-African American GFR(CKD) >90 (>60 ml/min/1.73 sqM); Potassium 3.8 mmol/L (3.5-5.1); Sodium 134 mmol/L (137-145); Total Bilirubin 0.5 mg/dL (0.2-1.3); Total Protein 6.5 g/dL (6.3-8.2)
[2021-01-16 22:25] VITALS: BP 130/70; PULSE 86; RESP 18; TEMP 98
== END 2021-01-16 22:23 | disposition home or self-care (01) ==
LOC: EC 19:54
DX: G40.909 Epilepsy, unspecified, not intractable, without status epilepticus (principal); F17.200 Nicotine dependence, unspecified, uncomplicated; F12.90 Cannabis use, unspecified, uncomplicated
CPT/HCPCS: 93005; 80053; 80177; 85025; 99284; 96360; G0480; 80320

== ENCOUNTER 2021-05-20 13:53 | Emergency (ER) | payer OTHER ==
[2021-05-20 14:11] VITALS: RESP 16; TEMP 99.3
[2021-05-20] MEDS ORDERED: SODIUM CHLORIDE 0.9% 1,000 ML IV STA (14:30)
[2021-05-20 14:51] LABS: Basophils % (A) 1 %; Eosinophils # (A) 0.1 k/uL (0-0.7); Eosinophils % (A) 2 %; HCT 48.7 % (39.0-53.0); HGB 16.3 gm/dL (13.0-17.5); Lymphocytes # (A) 0.7 k/uL (1.0-4.8); Lymphocytes % (A) 12 %; MCH 31.8 pg (25.0-35.0); MCHC 33.3 g/dL (31.0-37.0); MCV 95.3 fL (80.0-100.0); Mean Platelet Volume 7.7; Monocytes # (A) 0.3 k/uL (0-1.0); Monocytes % (A) 5 %; Neutrophils # (A) 4.6 k/uL (1.3-7.7); Neutrophils % (A) 80 %; Platelet Count 257 k/uL (150-450); RBC 5.12 m/uL (4.30-5.90); RDW 13.3 % (11.5-15.5); WBC 5.7 k/uL (3.8-10.6)
[2021-05-20 15:02] LABS: ALT 14 U/L (4-49); AST 22 U/L (17-59); African American GFR (CKD) >90 (>60 ml/min/1.73 sqM); Albumin 4.2 g/dL (3.5-5.0); Alcohol <10 mg/dL; Alkaline Phosphatase 52 U/L (38-126); Anion Gap 6 mmol/L; Blood Urea Nitrogen 14 mg/dL (9-20); Calcium 9.3 mg/dL (8.4-10.2); Carbon Dioxide 26 mmol/L (22-30); Chloride 108 mmol/L (98-107); Glucose 117 mg/dL (74-99); Non-African American GFR(CKD) >90 (>60 ml/min/1.73 sqM); Potassium 4.5 mmol/L (3.5-5.1); Sodium 140 mmol/L (137-145); Total Bilirubin 0.2 mg/dL (0.2-1.3); Total Protein 7.1 g/dL (6.3-8.2)
[2021-05-20 15:23] LABS: Appearance,Urine Clear (Clear); Bilirubin,Urine Negative (Negative); Blood,Urine Negative (Negative); Color,Urine Yellow; Glucose,Urine (UA) Negative (Negative); Ketones,Urine Negative (Negative); Leukocyte Esterase,Urine Negative (Negative); Nitrite,Urine Negative (Negative); PH, Urine 7.5 (5.0-8.0); Protein,Urine Trace (Negative); Specific Gravity,Urine 1.023 (1.001-1.035); Urobilinogen,Urine <2.0 mg/dL (<2.0)
[2021-05-20 15:28] VITALS: BP 124/87; PULSE 60
[2021-05-20 15:34] LABS: Amphetamine Screen,Urine Not Detected (NotDetected); Barbiturate Screen,Urine Not Detected (NotDetected); Benzodiazepines Screen,Urine Not Detected (NotDetected); Cocaine Screen,Urine Not Detected (NotDetected); Methadone Screen, Urine Not Detected (NotDetected); Opiate Screen,Urine Not Detected (NotDetected); Oxycodone Screen, Urine Not Detected (NotDetected); Phencyclidine Screen,Urine Not Detected (NotDetected); Tricyclic Antidepressant,Urine Not Detected (NotDetected); Urn Cannabinoid Scrn Detected (NotDetected)
--- NOTE | 2021-05-20 15:35 | ED ---
General Adult HPI - General Chief complaint: Seizure Stated complaint: Seizure Time Seen by Provider: 05/20/21 14:22 Source: EMS Mode of arrival: ambulatory Limitations: no limitations - History of Present Illness Initial comments: 41-year-old male with a past medical history of CVI, seizure disorder presents to the emergency room for a chief complaint of seizure. Family member at bedside states that patient started to have a seizure at home. States that he usually gets them every few months. States that whenever patient has a seizure it scares her and she always called 911. If patient is not alert to refuse the ambulance they come to the hospital. Patient was given versed on transportation by EMS. Patient denying any complaints at this time but is sleepy.patient did take his seizure medication today. Patient has no other complaints at this time including shortness of breath, chest pain, abdominal pain, nausea or vomiting, headache, or visual changes. - Related Data Home Medications Medication Instructions Recorded Confirmed Klonopin Odt Wafer 1mg 1 mg PO DAILY PRN 08/19/19 01/16/21 Loratadine [Claritin] 10 mg PO DAILY 01/16/21 01/16/21 OXcarbazepine [Trileptal] 300 mg PO BID 01/16/21 01/16/21 levETIRAcetam [Keppra] 2,000 mg PO DAILY 01/16/21 01/16/21 levETIRAcetam [Keppra] 2,500 mg PO HS 01/16/21 01/16/21 Allergies Allergy/AdvReac Type Severity Reaction Status Date / Time phenobarbital Allergy Unknown Verified 05/20/21 14:09 Childhood phenytoin sodium Allergy Unknown Verified 05/20/21 14:09 [From Dilantin] Childhood phenytoin sodium extended Allergy Unknown Verified 05/20/21 14:09 [From Dilantin] Childhood Review of Systems ROS Statement: Those systems with pertinent positive or pertinent negative responses have been documented in the HPI. ROS Other: All systems not noted in ROS Statement are negative. Past Medical History Past Medical History: Seizure Disorder Additional Past Medical History / Comment(s): CHI, TBI History of Any Multi-Drug Resistant Organisms: None Reported Additional Past Surgical History / Comment(s): brain surgery 30% of left hemishphere removed when patient was 14 years old, shunts Past Anesthesia/Blood Transfusion Reactions: No Reported Reaction Past Psychological History: No Psychological Hx Reported Smoking Status: Current every day smoker Past Alcohol Use History: Rare Past Drug Use History: Marijuana General Exam Limitations: no limitations General appearance: alert, in no apparent distress Head exam: Present: atraumatic, normocephalic, normal inspection Eye exam: Present: normal appearance, PERRL, EOMI. Absent: scleral icterus, conjunctival injection, periorbital swelling ENT exam: Present: normal exam Neck exam: Present: normal inspection, full ROM. Absent: tenderness, meningismus, lymphadenopathy Respiratory exam: Present: normal lung sounds bilaterally. Absent: respiratory distress, wheezes, rales, rhonchi, stridor Cardiovascular Exam: Present: regular rate, normal rhythm, normal heart sounds. Absent: systolic murmur, diastolic murmur, rubs, gallop, clicks GI/Abdominal exam: Present: soft, normal bowel sounds. Absent: distended, tenderness, guarding, rebound, rigid Neurological exam: Present: alert Course Vital Signs 05/20/21 05/20/21 14:09 15:27 Temperature 99.3 F Pulse Rate 96 60 Respiratory 16 16 Rate Blood Pressure 128/78 124/87 O2 Sat by Pulse 99 99 Oximetry Medical Decision Making - Medical Decision Making Vitals are stable. Patient is sleepy on presentation. Her evaluation was initiated. CBC CMP unremarkable. Urinalysis unremarkable. Toxicology screen negative except for marijuana. Serum alcohol is less than 10. I did recommend staying longer for more monitoring however patient is now alert. He is sitting in a chair with a cigar in his mouth saying he is going to leave if we did not discharge him. Patient will be discharged home to follow up with primary care. If he has any worsening symptoms he will return here. - Lab Data Result diagrams: 05/20/21 14:32 05/20/21 14:32 Lab Results 05/20/21 05/20/21 05/20/21 Range/Units 14:32 14:32 15:15 WBC 5.7 (3.8-10.6) k/uL RBC 5.12 (4.30-5.90) m/uL Hgb 16.3 (13.0-17.5) gm/dL Hct 48.7 (39.0-53.0) % MCV 95.3 (80.0-100.0) fL MCH 31.8 (25.0-35.0) pg MCHC 33.3 (31.0-37.0) g/dL RDW 13.3 (11.5-15.5) % Plt Count 257 (150-450) k/uL MPV 7.7 Neutrophils % 80 % Lymphocytes % 12 % Monocytes % 5 % Eosinophils % 2 % Basophils % 1 % Neutrophils # 4.6 (1.3-7.7) k/uL Lymphocytes # 0.7 L (1.0-4.8) k/uL Monocytes # 0.3 (0-1.0) k/uL Eosinophils # 0.1 (0-0.7) k/uL Basophils # 0.0 (0-0.2) k/uL Sodium 140 (137-145) mmol/L Potassium 4.5 (3.5-5.1) mmol/L Chloride 108 H (98-107) mmol/L Carbon Dioxide 26 (22-30) mmol/L Anion Gap 6 mmol/L BUN 14 (9-20) mg/dL Creatinine 0.65 L (0.66-1.25) mg/dL Est GFR (CKD-EPI)AfAm >90 (>60 ml/min/1.73 sqM) Est GFR (CKD-EPI)NonAf >90 (>60 ml/min/1.73 sqM) Glucose 117 H (74-99) mg/dL Calcium 9.3 (8.4-10.2) mg/dL Magnesium 2.0 (1.6-2.3) mg/dL Total Bilirubin 0.2 (0.2-1.3) mg/dL AST 22 (17-59) U/L ALT 14 (4-49) U/L Alkaline Phosphatase 52 (38-126) U/L Total Protein 7.1 (6.3-8.2) g/dL Albumin 4.2 (3.5-5.0) g/dL Urine Color Urine Appearance (Clear) Urine pH (5.0-8.0) Ur Specific [place] (1.001-1.035) Urine Protein (Negative) Urine Glucose (UA) (Negative) Urine Ketones (Negative) Urine Blood (Negative) Urine Nitrite (Negative) Urine Bilirubin (Negative) Urine Urobilinogen (<2.0) mg/dL Ur Leukocyte Esterase (Negative) Urine Opiates Screen Not Detected (NotDetected) Ur Oxycodone Screen Not Detected (NotDetected) Urine Methadone Screen Not Detected (NotDetected) Ur Propoxyphene Screen Not Detected (NotDetected) Ur Barbiturates Screen Not Detected (NotDetected) U Tricyclic Antidepress Not Detected (NotDetected) Ur Phencyclidine Scrn Not Detected (NotDetected) Ur Amphetamines Screen Not Detected (NotDetected) U Methamphetamines Scrn Not Detected (NotDetected) U Benzodiazepines Scrn Not Detected (NotDetected) Urine Cocaine Screen Not Detected (NotDetected) U Marijuana (THC) Screen Detected H (NotDetected) Serum Alcohol <10 mg/dL 05/20/21 Range/Units 15:15 WBC (3.8-10.6) k/uL RBC (4.30-5.90) m/uL Hgb (13.0-17.5) gm/dL Hct (39.0-53.0) % MCV (80.0-100.0) fL MCH (25.0-35.0) pg MCHC (31.0-37.0) g/dL RDW (11.5-15.5) % Plt Count (150-450) k/uL MPV Neutrophils % % Lymphocytes % % Monocytes % % Eosinophils % % Basophils % % Neutrophils # (1.3-7.7) k/uL Lymphocytes # (1.0-4.8) k/uL Monocytes # (0-1.0) k/uL Eosinophils # (0-0.7) k/uL Basophils # (0-0.2) k/uL Sodium (137-145) mmol/L Potassium (3.5-5.1) mmol/L Chloride (98-107) mmol/L Carbon Dioxide (22-30) mmol/L Anion Gap mmol/L BUN (9-20) mg/dL Creatinine (0.66-1.25) mg/dL Est GFR (CKD-EPI)AfAm (>60 ml/min/1.73 sqM) Est GFR (CKD-EPI)NonAf (>60 ml/min/1.73 sqM) Glucose (74-99) mg/dL Calcium (8.4-10.2) mg/dL Magnesium (1.6-2.3) mg/dL Total Bilirubin (0.2-1.3) mg/dL AST (17-59) U/L ALT (4-49) U/L Alkaline Phosphatase (38-126) U/L Total Protein (6.3-8.2) g/dL Albumin (3.5-5.0) g/dL Urine Color Yellow Urine Appearance Clear (Clear) Urine pH 7.5 (5.0-8.0) Ur Specific [place] 1.023 (1.001-1.035) Urine Protein Trace H (Negative) Urine Glucose (UA) Negative (Negative) Urine Ketones Negative (Negative) Urine Blood Negative (Negative) Urine Nitrite Negative (Negative) Urine Bilirubin Negative (Negative) Urine Urobilinogen <2.0 (<2.0) mg/dL Ur Leukocyte Esterase Negative (Negative) Urine Opiates Screen (NotDetected) Ur Oxycodone Screen (NotDetected) Urine Methadone Screen (NotDetected) Ur Propoxyphene Screen (NotDetected) Ur Barbiturates Screen (NotDetected) U Tricyclic Antidepress (NotDetected) Ur Phencyclidine Scrn (NotDetected) Ur Amphetamines Screen (NotDetected) U Methamphetamines Scrn (NotDetected) U Benzodiazepines Scrn (NotDetected) Urine Cocaine Screen (NotDetected) U Marijuana (THC) Screen (NotDetected) Serum Alcohol mg/dL Disposition Clinical Impression: Recurrent seizures Disposition: HOME SELF-CARE Condition: Good Instructions (If sedation given, give patient instructions): Recurrent Seizures in Adults (ED) Additional Instructions: Please follow-up with your doctor in one to 2 days. Return to the emergency room for any worsening symptoms. Is patient prescribed a controlled substance at d/c from ED?: No Referrals: Luis Felipe Tucker MD [Primary Care Provider] - 1-2 days Time of Disposition: 15:34
== END 2021-05-20 15:37 | disposition home or self-care (01) ==
LOC: EC 13:53
DX: G40.909 Epilepsy, unspecified, not intractable, without status epilepticus (principal); F17.200 Nicotine dependence, unspecified, uncomplicated; F12.90 Cannabis use, unspecified, uncomplicated; Z88.5 Allergy status to narcotic agent
CPT/HCPCS: 99285; 96360; 36415; 93005; 80053; 80177; 80183; 83735; 85025; 81003; 80306; G0480; 80320

== ENCOUNTER 2021-09-29 15:31 | Emergency (ER) | payer OTHER ==
[2021-09-29] MEDS ORDERED: LORazepam 2 MG/ML INJ IV STA (15:46)
[2021-09-29] MEDS ORDERED: SODIUM CHLORIDE 0.9% 1,000 ML IV STA (15:46)
[2021-09-29] MEDS ORDERED: levETIRAcetam IV 500 MG in SODIUM CHLORIDE 0.9% 100 ML IVPB STA (15:47)
[2021-09-29 16:04] VITALS: RESP 18; TEMP 98.3
[2021-09-29 16:16] LABS: Basophils # (A) 0.1 k/uL (0-0.2); Basophils % (A) 1 %; Eosinophils # (A) 0.3 k/uL (0-0.7); Eosinophils % (A) 4 %; HCT 49.8 % (39.0-53.0); HGB 15.9 gm/dL (13.0-17.5); Lymphocytes % (A) 16 %; MCH 31.4 pg (25.0-35.0); MCHC 31.9 g/dL (31.0-37.0); MCV 98.5 fL (80.0-100.0); Monocytes # (A) 0.5 k/uL (0-1.0); Monocytes % (A) 7 %; Neutrophils # (A) 4.5 k/uL (1.3-7.7); Neutrophils % (A) 70 %; Platelet Count 290 k/uL (150-450); RBC 5.06 m/uL (4.30-5.90); RDW 13.8 % (11.5-15.5); WBC 6.4 k/uL (3.8-10.6)
[2021-09-29 16:29] LABS: ALT 12 U/L (4-49); AST 19 U/L (17-59); African American GFR (CKD) >90 (>60 ml/min/1.73 sqM); Albumin 4.2 g/dL (3.5-5.0); Alkaline Phosphatase 62 U/L (38-126); Anion Gap 7 mmol/L; Blood Urea Nitrogen 10 mg/dL (9-20); Calcium 9.1 mg/dL (8.4-10.2); Carbon Dioxide 29 mmol/L (22-30); Chloride 101 mmol/L (98-107); Glucose 84 mg/dL (74-99); Magnesium 1.9 mg/dL (1.6-2.3); Non-African American GFR(CKD) >90 (>60 ml/min/1.73 sqM); Potassium 4.2 mmol/L (3.5-5.1); Sodium 137 mmol/L (137-145); Total Bilirubin 0.3 mg/dL (0.2-1.3); Total Protein 7.5 g/dL (6.3-8.2)
--- NOTE | 2021-09-29 17:36 | CT ---
EXAMINATION TYPE: CT brain wo con DATE OF EXAM: 09/29/2021 COMPARISON: 09/20/2020 HISTORY: Seizure, history of epilepsy. CT DLP: 1111.4 mGycm Automated exposure control for dose reduction was used. Ventricles have normal size. There is no mass effect nor midline shift. There is no evidence of intra cranial hemorrhage. There is wedge-shaped 4 cm area of hypodensity in the left posterior temporal lob e consistent with old encephalomalacia. The calvarium is intact. Skull base is intact. There is appar ent old left posterior temporal craniotomy defect. 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 No acute intracranial abnormality. No change compared to old exam .
--- NOTE | 2021-09-29 17:54 | ED ---
General Adult HPI - General Chief complaint: Seizure Stated complaint: seizure Time Seen by Provider: 09/29/21 15:39 Source: EMS, RN notes reviewed Mode of arrival: EMS Limitations: altered mental status - History of Present Illness Initial comments: 41-year-old male with a past medical history of TBI, seizure disorder presents to the emergency room for a chief complaint of seizure. Patient apparently had a seizure at home and 911 was called. Patient was postictal upon arrival and therefore not able to give much history. His right arm was shaking. When family member came back she stated that patient had a typical seizure and that this postictal state is normal for him.Patient has no other complaints at this time including shortness of breath, chest pain, abdominal pain, nausea or vomiting, headache, or visual changes. - Related Data Home Medications Medication Instructions Recorded Confirmed Klonopin Odt Wafer 1mg 1 mg PO DAILY PRN 08/19/19 09/29/21 Loratadine [Claritin] 10 mg PO DAILY 01/16/21 09/29/21 OXcarbazepine [Trileptal] 450 mg PO BID 01/16/21 09/29/21 levETIRAcetam [Keppra] 2,000 mg PO DAILY 01/16/21 09/29/21 levETIRAcetam [Keppra] 2,500 mg PO HS 01/16/21 09/29/21 Allergies Allergy/AdvReac Type Severity Reaction Status Date / Time phenobarbital Allergy Unknown Verified 05/20/21 14:09 Childhood phenytoin sodium Allergy Unknown Verified 05/20/21 14:09 [From Dilantin] Childhood phenytoin sodium extended Allergy Unknown Verified 05/20/21 14:09 [From Dilantin] Childhood Review of Systems ROS Statement: Those systems with pertinent positive or pertinent negative responses have been documented in the HPI. ROS Other: All systems not noted in ROS Statement are negative. Past Medical History Past Medical History: Seizure Disorder Additional Past Medical History / Comment(s): CHI, TBI History of Any Multi-Drug Resistant Organisms: None Reported Additional Past Surgical History / Comment(s): brain surgery 30% of left hemishphere removed when patient was 14 years old, shunts Past Anesthesia/Blood Transfusion Reactions: No Reported Reaction Past Psychological History: No Psychological Hx Reported Smoking Status: Current every day smoker Past Alcohol Use History: Rare Past Drug Use History: Marijuana General Exam Limitations: altered mental status General appearance: alert, in no apparent distress Head exam: Present: atraumatic Eye exam: Present: normal appearance, PERRL, EOMI. Absent: scleral icterus, conjunctival injection ENT exam: Present: normal exam, mucous membranes moist Neck exam: Present: normal inspection, full ROM. Absent: tenderness Respiratory exam: Present: normal lung sounds bilaterally. Absent: respiratory distress, wheezes Cardiovascular Exam: Present: regular rate, normal rhythm, normal heart sounds GI/Abdominal exam: Present: soft, normal bowel sounds. Absent: distended, tenderness Extremities exam: Present: other (Right arm is tremulous) Course Vital Signs 09/29/21 09/29/21 15:57 16:13 Temperature 98.3 F Pulse Rate 75 71 Respiratory 18 18 Rate Blood Pressure 132/80 128/81 O2 Sat by Pulse 98 100 Oximetry Medical Decision Making - Medical Decision Making He should initially seen. He is alert and oriented and responds to commands but is not able to speak which is apparently typical for him. He does have some right arm tremors and therefore Ativan was given.CBC CMP unremarkable. CT showed old left temporal encephalomalacia. No acute intracranial abnormality. Reevaluated is doing much better. He is alert and oriented. He is speaking in normal sentences. He can be discharged home to follow up with primary care. He will return here for any worsening symptoms. - Lab Data Result diagrams: 09/29/21 15:57 09/29/21 15:57 Lab Results 09/29/21 09/29/21 Range/Units 15:57 15:57 WBC 6.4 (3.8-10.6) k/uL RBC 5.06 (4.30-5.90) m/uL Hgb 15.9 (13.0-17.5) gm/dL Hct 49.8 (39.0-53.0) % MCV 98.5 (80.0-100.0) fL MCH 31.4 (25.0-35.0) pg MCHC 31.9 (31.0-37.0) g/dL RDW 13.8 (11.5-15.5) % Plt Count 290 (150-450) k/uL MPV 7.0 Neutrophils % 70 % Lymphocytes % 16 % Monocytes % 7 % Eosinophils % 4 % Basophils % 1 % Neutrophils # 4.5 (1.3-7.7) k/uL Lymphocytes # 1.0 (1.0-4.8) k/uL Monocytes # 0.5 (0-1.0) k/uL Eosinophils # 0.3 (0-0.7) k/uL Basophils # 0.1 (0-0.2) k/uL Sodium 137 (137-145) mmol/L Potassium 4.2 (3.5-5.1) mmol/L Chloride 101 (98-107) mmol/L Carbon Dioxide 29 (22-30) mmol/L Anion Gap 7 mmol/L BUN 10 (9-20) mg/dL Creatinine 0.69 (0.66-1.25) mg/dL Est GFR (CKD-EPI)AfAm >90 (>60 ml/min/1.73 sqM) Est GFR (CKD-EPI)NonAf >90 (>60 ml/min/1.73 sqM) Glucose 84 (74-99) mg/dL Calcium 9.1 (8.4-10.2) mg/dL Magnesium 1.9 (1.6-2.3) mg/dL Total Bilirubin 0.3 (0.2-1.3) mg/dL AST 19 (17-59) U/L ALT 12 (4-49) U/L Alkaline Phosphatase 62 (38-126) U/L Total Protein 7.5 (6.3-8.2) g/dL Albumin 4.2 (3.5-5.0) g/dL Disposition Clinical Impression: Breakthrough seizure Disposition: HOME SELF-CARE Condition: Good Instructions (If sedation given, give patient instructions): Seizure/Epilepsy Discharge Instructions & Follow-Up Additional Instructions: Please follow-up with your neurologist. Return to the emergency room for any worsening symptoms. Is patient prescribed a controlled substance at d/c from ED?: No Referrals: Silver Lambert MD [Primary Care Provider] - 1-2 days Time of Disposition: 17:55
[2021-09-29 19:30] VITALS: BP 102/52; PULSE 76
[2021-09-30 08:46] LABS: Levetiracetam (Keppra) 49.1 ug/mL (3.0-60.0)
== END 2021-09-29 19:30 | disposition home or self-care (01) ==
LOC: EC 15:31
DX: G40.909 Epilepsy, unspecified, not intractable, without status epilepticus (principal); F17.200 Nicotine dependence, unspecified, uncomplicated; F12.90 Cannabis use, unspecified, uncomplicated; Z79.899 Other long term (current) drug therapy
CPT/HCPCS: 36415; 80053; 80177; 80183; 83735; 85025; 70450; 99284; 96374; 96375; 96361; J2060; J1953

== ENCOUNTER → 2021-12-17 | Outpatient (CLI) | payer OTHER ==
--- NOTE | 2021-12-18 03:12 | MR ---
EXAMINATION TYPE: MR brain wo/w con DATE OF EXAM: 12/17/2021 COMPARISON: CT scan 06/19/2016 HISTORY: Epilepsy, hx TBI. Brain surgery x2 at age 13. CONTRAST: Standard multiplanar, multisequence MRI departmental protocol images were obtained without contrast a nd with 7.5 mL intravenous Gadavist gadolinium contrast. There is a 4 cm triangular-shaped area of fluid signal left posterior temporal lobe consistent with e ncephalomalacia. There is no mass effect. There is no midline shift. There is no evidence of intracra nial hemorrhage. There is linear increased signal on the FLAIR images at the frontal horns of the lat eral ventricles consistent with previous shunt catheters. There is mild mucosal thickening in the max illary sinuses. Orbits are intact. There is mucosal thickening in the ethmoid and frontal sinuses. Pr econtrast images show no pathologic enhancement. There is normal enhancement of the venous sinuses. D iffusion images show no evidence of an acute infarct. Sella turcica appears normal. Optic chiasm is normal. There is some mild thinning of the corpus callo sum. IMPRESSION: Old encephalomalacia left posterior temporal lobe without change compared to old CT scan of 06/19/2016 . No acute intracranial abnormality. Sinusitis also present on old CT scan.
== END | disposition home or self-care (01) ==
LOC: RADMRIMAIN 17:04
PROVIDERS: ATTEND Psychiatry & Neurology Neurology
DX: G93.89 Other specified disorders of brain (principal)
CPT/HCPCS: 70553; A9585

== ENCOUNTER 2022-02-07 21:11 | Emergency (ER) | payer OTHER ==
[2022-02-07 21:30] VITALS: BP 132/84; PULSE 65; RESP 16; TEMP 98.3
--- NOTE | 2022-02-07 21:50 | ED ---
General Adult HPI - General Chief complaint: Recheck/Abnormal Lab/Rx Stated complaint: Seizures Time Seen by Provider: 02/07/22 21:27 Source: patient, family, EMS, RN notes reviewed Mode of arrival: EMS Limitations: no limitations - History of Present Illness Initial comments: Patient is a pleasant 41-year-old male presenting to the emergency department following having an aura. Patient had a sensation of a metal taste in his mouth. Patient states he usually gets this when he has seizures. Patient did talk to family who suggested he takes Klonopin and he did. Patient feels better now and has no complaints. Patient did not have a seizure. Patient states he feels better like to be discharged. Patient is receptive to having his blood drawn for his anticonvulsant levels. Patient does have follow-up appointment with his neurologist this week. Patient does have a history of chronic seizures and currently gets approximate one per month which is significantly improved from his chronic seizure history. Patient does have history of a closed head injury at age 13. - Related Data Home Medications Medication Instructions Recorded Confirmed Klonopin Odt Wafer 1mg 1 mg PO DAILY PRN 08/19/19 09/29/21 Loratadine [Claritin] 10 mg PO DAILY 01/16/21 09/29/21 OXcarbazepine [Trileptal] 450 mg PO BID 01/16/21 09/29/21 levETIRAcetam [Keppra] 2,000 mg PO DAILY 01/16/21 09/29/21 levETIRAcetam [Keppra] 2,500 mg PO HS 01/16/21 09/29/21 Allergies Allergy/AdvReac Type Severity Reaction Status Date / Time phenobarbital Allergy Unknown Verified 05/20/21 14:09 Childhood phenytoin sodium Allergy Unknown Verified 05/20/21 14:09 [From Dilantin] Childhood phenytoin sodium extended Allergy Unknown Verified 05/20/21 14:09 [From Dilantin] Childhood Review of Systems ROS Statement: Those systems with pertinent positive or pertinent negative responses have been documented in the HPI. ROS Other: All systems not noted in ROS Statement are negative. Constitutional: Denies: fever Eyes: Denies: eye pain ENT: Denies: ear pain Respiratory: Denies: cough Cardiovascular: Denies: chest pain Endocrine: Denies: fatigue Gastrointestinal: Denies: abdominal pain Genitourinary: Denies: urgency Musculoskeletal: Denies: back pain Skin: Denies: rash Neurological: Denies: weakness Past Medical History Past Medical History: Seizure Disorder Additional Past Medical History / Comment(s): CHI, TBI History of Any Multi-Drug Resistant Organisms: None Reported Additional Past Surgical History / Comment(s): brain surgery 30% of left hemishphere removed when patient was 14 years old, shunts Past Anesthesia/Blood Transfusion Reactions: No Reported Reaction Past Psychological History: No Psychological Hx Reported Smoking Status: Current every day smoker Past Alcohol Use History: Rare Past Drug Use History: Marijuana General Exam Limitations: no limitations General appearance: alert, in no apparent distress Head exam: Present: normocephalic Eye exam: Present: normal appearance, PERRL, EOMI Neck exam: Present: normal inspection Respiratory exam: Present: normal lung sounds bilaterally Cardiovascular Exam: Present: regular rate, normal rhythm GI/Abdominal exam: Present: soft. Absent: tenderness Extremities exam: Present: normal inspection Neurological exam: Present: alert, CN II-XII intact. Absent: motor sensory deficit Expanded Neurological exam: Present: protecting the airway Speech: Present: fluid speech Motor strength exam: RUE: 5, LUE: 5, RLE: 5, LLE: 5 Eye Response: (4) open spontaneously Motor Response: (6) obeys commands Verbal Response: (5) oriented Psychiatric exam: Present: normal affect, normal mood Skin exam: Present: normal color Course Vital Signs 02/07/22 21:26 Temperature 98.3 F Pulse Rate 65 Respiratory 16 Rate Blood Pressure 132/84 O2 Sat by Pulse 96 Oximetry Disposition Clinical Impression: Aura Disposition: HOME SELF-CARE Condition: Stable Instructions (If sedation given, give patient instructions): Epilepsy (ED) Additional Instructions: Please do follow-up with your primary care physician and neurologist this week. Return for seizures, worsening or change in symptoms, or any other concerns. Please have your doctor's recheck your labs drawn today. Is patient prescribed a controlled substance at d/c from ED?: No Referrals: Luis Felipe Tucker MD [Primary Care Provider] - 1-2 days Time of Disposition: 21:50
[2022-02-09 08:17] LABS: Levetiracetam (Keppra) 21.1 ug/mL (3.0-60.0)
== END 2022-02-07 22:28 | disposition home or self-care (01) ==
LOC: EC 21:11
DX: G40.909 Epilepsy, unspecified, not intractable, without status epilepticus (principal); R29.818 Other symptoms and signs involving the nervous system; F17.210 Nicotine dependence, cigarettes, uncomplicated; F12.90 Cannabis use, unspecified, uncomplicated
CPT/HCPCS: 36415; 80177; 80183; 99284

== ENCOUNTER → 2022-03-14 | Outpatient (CLI) | payer OTHER ==
[2022-03-14 22:23] LABS: Basophils # (A) 0.07 X 10*3/uL (0.00-0.10); Eosinophils # (A) 0.44 X 10*3/uL (0.04-0.35); Eosinophils % (A) 6.3 %; HCT 42.4 % (39.6-50.0); HGB 14.3 g/dL (13.0-17.0); Immature Grans, Automated 0.4 %; Lymphocytes # (A) 1.47 X 10*3/uL (0.90-5.00); Lymphocytes % (A) 20.9 %; MCH 30.7 pg (27.0-32.0); MCHC 33.7 g/dL (32.0-37.0); Mean Platelet Volume 8.4 fL (9.5-12.2); Monocytes # (A) 0.74 X 10*3/uL (0.20-1.00); Monocytes % (A) 10.5 %; NRBC Per 100 WBC 0 /100 WBCS (0.0-0.0); Neutrophils # (A) 4.28 X 10*3/uL (1.80-7.70); Neutrophils % (A) 60.9 %; Platelet Count 323 X 10*3/uL (140-440); RBC 4.66 X 10*6/uL (4.40-5.60); RDW 14.1 % (11.5-14.5); WBC 7.03 X 10*3/uL (4.50-10.00)
[2022-03-14 23:14] LABS: African American GFR (CKD) 136.8 (60.0-200.0); Albumin 4.3 g/dL (3.8-4.9); Albumin/Globulin Ratio 1.87 (1.60-3.17); Blood Urea Nitrogen 5.6 mg/dL (9.0-27.0); Calcium 9.2 mg/dL (8.7-10.3); Globulin 2.3 g/dL (1.6-3.3); Potassium 4.7 mmol/L (3.5-5.5); Total Bilirubin 0.3 mg/dL (0.30-1.20); Total Protein 6.6 g/dL (6.2-8.2)
== END | disposition home or self-care (01) ==
LOC: LABWHC1 14:47
PROVIDERS: ATTEND Psychiatry & Neurology Neurology
DX: G40.919 Epilepsy, unspecified, intractable, without status epilepticus (principal)
CPT/HCPCS: 36415; 80053; 85025

== ENCOUNTER → 2022-10-18 | Outpatient (CLI) | payer OTHER ==
[2022-10-18 23:19] LABS: Basophils # (A) 0.07 X 10*3/uL (0.00-0.10); Basophils % (A) 1.1 %; Eosinophils # (A) 0.48 X 10*3/uL (0.04-0.35); Eosinophils % (A) 7.4 %; HCT 48.1 % (39.6-50.0); HGB 15.9 g/dL (13.0-17.0); Immature Grans, Automated 0.3 %; Lymphocytes # (A) 1.89 X 10*3/uL (0.90-5.00); Lymphocytes % (A) 29.2 %; MCH 31.3 pg (27.0-32.0); MCHC 33.1 g/dL (32.0-37.0); MCV 94.7 fL (80.0-97.0); Mean Platelet Volume 8.8 fL (9.5-12.2); Monocytes # (A) 0.55 X 10*3/uL (0.20-1.00); Monocytes % (A) 8.5 %; NRBC Per 100 WBC 0 /100 WBCS (0.0-0.0); Neutrophils # (A) 3.47 X 10*3/uL (1.80-7.70); Neutrophils % (A) 53.5 %; Platelet Count 311 X 10*3/uL (140-440); RBC 5.08 X 10*6/uL (4.40-5.60); RDW 13.2 % (11.5-14.5); WBC 6.48 X 10*3/uL (4.50-10.00)
[2022-10-19 05:11] LABS: African American GFR (CKD) 124.8 (60.0-200.0); Albumin 4.3 g/dL (3.8-4.9); Albumin/Globulin Ratio 1.59 (1.60-3.17); Anion Gap 12.1 mmol/L (10.00-18.00); BUN/Creat Ratio 11.44 Ratio (12.00-20.00); Blood Urea Nitrogen 9.8 mg/dL (9.0-27.0); Calcium 9.3 mg/dL (8.7-10.3); Carbon Dioxide 24.3 mmol/L (20.0-27.5); Globulin 2.7 g/dL (1.6-3.3); Non-African American GFR(CKD) 107.7 (60.0-200.0); Potassium 4.5 mmol/L (3.5-5.5); Total Bilirubin 0.2 mg/dL (0.30-1.20); Total Protein 7.1 g/dL (6.2-8.2)
== END | disposition home or self-care (01) ==
LOC: LABWHC1 14:44
PROVIDERS: ATTEND Psychiatry & Neurology Neurology
DX: G40.909 Epilepsy, unspecified, not intractable, without status epilepticus (principal)
CPT/HCPCS: 36415; 80053; 85025